=== PATIENT | male | born 1960 ===

== ENCOUNTER 2024-02-03 16:57 | Outpatient (CLI) | payer MEDICAID, SELFPAY | END 2024-02-03 16:58 | disposition home or self-care (01) | LOC: AMB 02-13 04:43 | PROVIDERS: Visit Provider Family Medicine | DX: F10.129 Alcohol abuse with intoxication, unspecified (principal) | CPT/HCPCS: A0425; A0427 ==

== ENCOUNTER 2024-02-03 17:28 | Emergency (ER) | payer MEDICAID, SELFPAY ==
[2024-02-03] VITALS (68 sets, daily range): BP systolic 65–127; BP diastolic 41–85; PULSE 103–121; RESP 12–22; TEMP 36.2–37; O2SAT 86–98; BMI 26.6
--- NOTE | 2024-02-03 17:33 | CRLHL7_ITS ---
For Patients: As a result of the Cures Act, medical imaging exams and procedure reports are released immediately into your electronic medical record. You may view this report before your referring provider. If you have questions, please contact your health care provider. INDICATION: Hypoxia. COMPARISON: None available. TECHNIQUE: 1 view. FINDINGS: Lordotic position. Medical Devices: None. Lung Volumes: Adequate inspiration. No significant atelectasis. Lungs: Clear lungs. Pleura and Pleural spaces: No significant pleural effusion. No pneumothorax. Mediastinum: Normal cardiomediastinal silhouette. Bony Thorax and Soft Tissues: No significant incidental findings. IMPRESSION: No radiographic findings to explain hypoxia. Dictated by Jose Zee MD @ 02/03/2024 6:22:41 PM (Electronically Signed)
[2024-02-03] MEDS: 0.9 % SODIUM CHLORIDE 1000 ml 1,000 ML IV ×2 (17:35→17:39)
--- NOTE | 2024-02-03 17:35 | ED_ITS ---
HPI - General Adult General Date Seen: 02/03/24 Chief complaint: Alcohol/Intoxication Stated complaint: ETOH Time Seen by Provider: 02/03/24 17:32 Source: patient and EMS Mode of arrival: EMS Limitations: no limitations History of Present Illness HPI narrative: This 63-year-old male was brought in on a [facility]. He was dropped off at his apartment by taxicab, reportedly fell a couple times in the lobby. EMS found him slumped along the wall, sitting slumped over with back against the wall. He reportedly had vomited but there was no visible vomit on scene. EMS was having difficulty getting vital signs, thought that the patient was maybe a little tremulous. His initial O2 sat was 73 and initial blood pressure was 73/42. With 4 L oxygen he did go up to 95%. Blood pressure did start trending lower, 45/29, 51/28, 52/24, 51/41. This is what prompted them to bring him in as a [facility]. He was noted to be tachycardic in the 120s. EMS did get 1 IV started, blood sugar was 159. Patient is conversive and reportedly more alert here. He states he does about 20 shots a day, drinks Jagermeister and gin. He states he has been throwing up for couple months, it is dark when he throws up. Denies any bleeding rectally. He denies any other drug use. Denies any pain anywhere. Does admit that he has fallen even before today. States he does not go to the doctor anywhere. No abdominal pain. He complains of feeling cold. He denies any history of liver disease, he states he has never been diagnosed with any liver disease when I question him. He reportedly though does not go to the doctor. Patient denies current nicotine products but states he did smoke previously. Review of Systems Status of ROS: Reports: 6 or more systems reviewed and unremarkable except as noted in History and below PFSH PFSH Social History Smoking Status: Former smoker What tobacco products do you use: cigarettes Smoking quit date/years: <= 15 years ago How often do you have a drink containing alcohol: 4 or more times a week How many standard drinks containing alcohol do you have on a typical day: 10 or more How often do you have six or more drinks on one occasion: Daily or almost daily AUDIT-C Alcohol total score: 12 Non-prescribed substance use: denies use Exam Const: Vital Signs, click to edit/add: Vital Signs - 24 hr 02/03/24 17:30 02/03/24 17:32 02/03/24 17:32 Temperature 98.2 F Pulse Rate Pulse Rate [Left P ulse Oximeter] 120 H Respiratory Rate 22 Blood Pressure Blood Pressure [Le ft Upper Arm] 65/45 L Pulse Oximetry 93 90 90 Oxygen Delivery Me thod Room Air Nasal Cannula Oxygen Flow Rate 4 02/03/24 17:40 02/03/24 17:41 02/03/24 17:46 Temperature Pulse Rate 113 H 110 H 121 H Pulse Rate [Left P ulse Oximeter] Respiratory Rate 16 12 Blood Pressure 80/52 L 102/61 86/54 L Blood Pressure [Le ft Upper Arm] Pulse Oximetry 93 95 93 Oxygen Delivery Me thod Nasal Cannula Oxygen Flow Rate 02/03/24 17:49 02/03/24 17:52 02/03/24 17:56 Temperature Pulse Rate 115 H 113 H 113 H Pulse Rate [Left P ulse Oximeter] Respiratory Rate Blood Pressure 105/59 L 96/53 L 102/63 Blood Pressure [Le ft Upper Arm] Pulse Oximetry 95 91 86 L Oxygen Delivery Me thod Oxygen Flow Rate 02/03/24 18:00 02/03/24 18:01 02/03/24 18:06 Temperature Pulse Rate 109 H 108 H 110 H Pulse Rate [Left P ulse Oximeter] Respiratory Rate Blood Pressure 109/68 103/63 Blood Pressure [Le ft Upper Arm] Pulse Oximetry 98 97 98 Oxygen Delivery Me thod Nasal Cannula Nasal Cannula Oxygen Flow Rate 4 4 02/03/24 18:11 02/03/24 18:15 02/03/24 18:17 Temperature Pulse Rate 108 H 107 H 109 H Pulse Rate [Left P ulse Oximeter] Respiratory Rate Blood Pressure 97/58 L 86/54 L Blood Pressure [Le ft Upper Arm] Pulse Oximetry 97 96 97 Oxygen Delivery Me thod Nasal Cannula Nasal Cannula Nasal Cannula Oxygen Flow Rate 4 4 4 02/03/24 18:18 02/03/24 18:22 02/03/24 18:25 Temperature Pulse Rate 111 H 112 H 111 H Pulse Rate [Left P ulse Oximeter] Respiratory Rate Blood Pressure 86/57 L 81/61 L 89/56 L Blood Pressure [Le ft Upper Arm] Pulse Oximetry 95 95 96 Oxygen Delivery Me thod Nasal Cannula Nasal Cannula Nasal Cannula Oxygen Flow Rate 4 4 4 02/03/24 18:27 02/03/24 18:29 02/03/24 18:30 Temperature Pulse Rate 112 H 110 H 109 H Pulse Rate [Left P ulse Oximeter] Respiratory Rate Blood Pressure 71/47 L 73/43 L 76/41 L Blood Pressure [Le ft Upper Arm] Pulse Oximetry 92 95 95 Oxygen Delivery Me thod Nasal Cannula Nasal Cannula Nasal Cannula Oxygen Flow Rate 4 4 4 02/03/24 18:31 02/03/24 18:32 02/03/24 18:37 Temperature Pulse Rate 106 H 108 H 110 H Pulse Rate [Left P ulse Oximeter] Respiratory Rate Blood Pressure 84/44 L 84/47 L Blood Pressure [Le ft Upper Arm] Pulse Oximetry 94 94 95 Oxygen Delivery Me thod Nasal Cannula Nasal Cannula Nasal Cannula Oxygen Flow Rate 4 4 4 02/03/24 18:38 02/03/24 18:41 02/03/24 18:45 Temperature 98.6 F Pulse Rate 106 H 109 H 108 H Pulse Rate [Left P ulse Oximeter] Respiratory Rate 20 Blood Pressure 84/47 L 80/43 L Blood Pressure [Le ft Upper Arm] Pulse Oximetry 94 94 95 Oxygen Delivery Me thod Nasal Cannula Nasal Cannula Oxygen Flow Rate 4 4 02/03/24 18:47 02/03/24 18:51 02/03/24 18:57 Temperature 98.6 F Pulse Rate 112 H 112 H 105 H Pulse Rate [Left P ulse Oximeter] Respiratory Rate 16 Blood Pressure 84/44 L 84/54 L 98/55 L Blood Pressure [Le ft Upper Arm] Pulse Oximetry 95 95 96 Oxygen Delivery Me thod Nasal Cannula Nasal Cannula Oxygen Flow Rate 4 4 02/03/24 18:57 02/03/24 18:58 02/03/24 19:00 Temperature Pulse Rate 107 H 106 H 107 H Pulse Rate [Left P ulse Oximeter] Respiratory Rate Blood Pressure 100/55 L 98/55 L Blood Pressure [Le ft Upper Arm] Pulse Oximetry 95 95 97 Oxygen Delivery Me thod Nasal Cannula Nasal Cannula Nasal Cannula Oxygen Flow Rate 4 4 4 02/03/24 19:01 02/03/24 19:07 02/03/24 19:11 Temperature 98.3 F Pulse Rate 108 H 107 H Pulse Rate [Left P ulse Oximeter] Respiratory Rate Blood Pressure 95/55 L 106/55 L Blood Pressure [Le ft Upper Arm] Pulse Oximetry 96 97 Oxygen Delivery Me thod Nasal Cannula Nasal Cannula Oxygen Flow Rate 4 4 02/03/24 19:12 02/03/24 19:15 02/03/24 19:30 Temperature Pulse Rate 110 H 109 H 110 H Pulse Rate [Left P ulse Oximeter] Respiratory Rate Blood Pressure 100/48 L Blood Pressure [Le ft Upper Arm] Pulse Oximetry 95 95 95 Oxygen Delivery Me thod Nasal Cannula Nasal Cannula Nasal Cannula Oxygen Flow Rate 4 4 4 02/03/24 19:32 02/03/24 19:37 02/03/24 19:41 Temperature Pulse Rate 110 H 111 H 110 H Pulse Rate [Left P ulse Oximeter] Respiratory Rate Blood Pressure 98/61 89/65 L 103/58 L Blood Pressure [Le ft Upper Arm] Pulse Oximetry 96 98 95 Oxygen Delivery Me thod Nasal Cannula Nasal Cannula Nasal Cannula Oxygen Flow Rate 4 4 4 02/03/24 19:42 02/03/24 19:45 02/03/24 19:46 Temperature 98.3 F Pulse Rate 110 H 111 H 109 H Pulse Rate [Left P ulse Oximeter] Respiratory Rate 16 Blood Pressure 103/62 106/63 Blood Pressure [Le ft Upper Arm] Pulse Oximetry 95 96 96 Oxygen Delivery Me thod Nasal Cannula Nasal Cannula Oxygen Flow Rate 4 4 02/03/24 19:51 02/03/24 19:56 02/03/24 19:57 Temperature 98.1 F Pulse Rate 112 H 108 H 108 H Pulse Rate [Left P ulse Oximeter] Respiratory Rate 16 Blood Pressure 103/62 108/66 108/66 Blood Pressure [Le ft Upper Arm] Pulse Oximetry 95 94 95 Oxygen Delivery Me thod Nasal Cannula Nasal Cannula Oxygen Flow Rate 4 4 02/03/24 19:59 02/03/24 20:00 02/03/24 20:00 Temperature 98.1 F 97.2 F L Pulse Rate 109 H 109 H 110 H Pulse Rate [Left P ulse Oximeter] Respiratory Rate 16 16 Blood Pressure 108/66 108/72 Blood Pressure [Le ft Upper Arm] Pulse Oximetry 96 95 94 Oxygen Delivery Me thod Nasal Cannula Oxygen Flow Rate 4 02/03/24 20:01 02/03/24 20:07 02/03/24 20:11 Temperature Pulse Rate 109 H 110 H 106 H Pulse Rate [Left P ulse Oximeter] Respiratory Rate Blood Pressure 108/72 101/66 107/64 Blood Pressure [Le ft Upper Arm] Pulse Oximetry 96 96 95 Oxygen Delivery Me thod Nasal Cannula Nasal Cannula Nasal Cannula Oxygen Flow Rate 4 4 4 02/03/24 20:15 02/03/24 20:16 02/03/24 20:21 Temperature Pulse Rate 108 H 109 H 108 H Pulse Rate [Left P ulse Oximeter] Respiratory Rate Blood Pressure 107/67 113/67 Blood Pressure [Le ft Upper Arm] Pulse Oximetry 95 95 95 Oxygen Delivery Me thod Nasal Cannula Nasal Cannula Nasal Cannula Oxygen Flow Rate 4 4 4 02/03/24 20:27 02/03/24 20:30 02/03/24 20:31 Temperature Pulse Rate 109 H 103 H 106 H Pulse Rate [Left P ulse Oximeter] Respiratory Rate Blood Pressure 107/67 110/85 Blood Pressure [Le ft Upper Arm] Pulse Oximetry 94 94 94 Oxygen Delivery Me thod Nasal Cannula Nasal Cannula Nasal Cannula Oxygen Flow Rate 4 4 4 02/03/24 20:36 02/03/24 20:41 02/03/24 20:45 Temperature Pulse Rate 113 H 111 H 108 H Pulse Rate [Left P ulse Oximeter] Respiratory Rate Blood Pressure 107/64 114/73 Blood Pressure [Le ft Upper Arm] Pulse Oximetry 96 94 93 Oxygen Delivery Me thod Nasal Cannula Nasal Cannula Nasal Cannula Oxygen Flow Rate 4 4 4 02/03/24 20:46 02/03/24 20:47 02/03/24 21:00 Temperature Pulse Rate 107 H 108 H 107 H Pulse Rate [Left P ulse Oximeter] Respiratory Rate Blood Pressure 118/71 Blood Pressure [Le ft Upper Arm] Pulse Oximetry 92 90 94 Oxygen Delivery Me thod Nasal Cannula Nasal Cannula Nasal Cannula Oxygen Flow Rate 4 4 4 02/03/24 21:01 02/03/24 21:15 02/03/24 21:17 Temperature Pulse Rate 105 H 116 H 116 H Pulse Rate [Left P ulse Oximeter] Respiratory Rate Blood Pressure 127/79 120/84 Blood Pressure [Le ft Upper Arm] Pulse Oximetry 93 92 95 Oxygen Delivery Me thod Nasal Cannula Nasal Cannula Nasal Cannula Oxygen Flow Rate 4 4 4 02/03/24 21:30 02/03/24 21:31 Temperature Pulse Rate 114 H 117 H Pulse Rate [Left P ulse Oximeter] Respiratory Rate Blood Pressure 127/82 Blood Pressure [Le ft Upper Arm] Pulse Oximetry 96 93 Oxygen Delivery Me thod Nasal Cannula Nasal Cannula Oxygen Flow Rate 4 4 63-year-old male looks to be intoxicated but is alert and conversive with me. Pupils are equal and round, sclera clear, conjugate gaze. He has dark matter around his stubble around his mouth on his chin. Looks to be probable dried coffee-ground emesis. No active bleeding is oropharynx, or pharynx dry. Neck is supple, no adenopathy. He is lying flat. Lungs are clear, good air entry. No wheezing or crackles at the axilla or anteriorly. CV is fast irregular, no murmur, normal S1-S2, no S3-S4. Abdomen is soft, nontender, nondistended, no organomegaly noted. He has no lower extremity edema. He has ecchymosis, mild erythema and abrasions anteriorly over both of his knee areas. There is some mild warmth, some mild induration of the tissues around the bruising and abraded areas. This certainly could represent some mild early cellulitis. He is able to mobilize is knees, been does legs. He has dried appearing blood by his toes. Presumably this was vomit any vomited on his feet when he was barefoot. He did come in wearing shoes that did not have vomit on them. He moves his arms, squeezes hands. He does not have any noted focal deficit. I see no acute traumatic change of the arms. Scalp is intact, no noted facial trauma. Documenting provider has reviewed patient's vital signs: yes Course Course ED Course: We have an admitted alcoholic patient that is hypotensive with probable coffee ground emesis, presume GI bleeding. He does not have any abdominal tenderness, is not febrile, doubt infectious etiology but will keep an consideration. Patient could have esophageal varices, tearing from vomiting, gastritis, ulcer with active bleeding. We will establish 2 IVs, initiate 2 L of normal saline, get full complement of labs and type and screen. I will initiate 80 mg IV Protonix, 4 mg IV Zofran, 1000 mg IV tranexemic acid. He will be on cardiac monitoring, pulse oximetry in, obtain an EKG. This patient is likely to need transfer. If pressures stay low or dropping despite the IV fluids, consider blood. Will also obtain portable chest x-ray given the hypoxia, could be aspiration, underlying pneumonia given his chronic alcohol state. Even if patient does stabilize, we will not have endoscopy until Monday of this upcoming week. Reevaluation(s) Time of Reevaluation #1: 17:47 Reevaluation #1: Nursing staff reported patient did have a coffee-ground emesis. They just have gotten medications in him with Protonix, Zofran. Will watch him closely, may need to initiate blood. He is starting on the 2 L IV fluid, both IVs are in place. I have asked staff to look for an ICU bed at a higher level institution. Lab is aware that we need his hemoglobin stat. Gastrocult is positive. Time of Reevaluation #2: 18:07 Reevaluation #2: Patient has completed his 2 L of IV fluids. He is still alert and conversive, states he just does not feel good. When ask him to expound, he states that there is no body aches on questioning. He does not have a headache, has no abdominal pain, states he has no pain anywhere. He states he just feels weak. He is mildly tachycardic at 110, current systolic blood pressure is 109. Given his lactate is greater than 24, will initiate 3rd L of normal saline over 2 h ours. His hemoglobin is come back in the 12 range, likely to drop further. His potassium is come back at 2.3. This patient is not in a position to tolerate oral replacement. Have ordered our protocol for four 10 mEq doses of IV potassium. Await the rest of the labs, suspect his magnesium may come back low as well. Time of Reevaluation #3: 18:26 Reevaluation #3: Patient did have an other small coffee-ground emesis. Blood pressures are trending down in the systolics of 80s. Will give the 3 L of normal saline rapidly, had ordered over 2 hours but will give it rapidly. Will have lab type and crossmatch at this point. Still awaiting a call back for placement. Additional Reevaluation(s): 6:31 p.m.: Nursing staff did come back to tell me that despite increasing the 3 L wide open, patient was feeling miserable, stated he felt like he was going to , blood pressure was continuing to drop lower into the 80s. I did call lab, we know that the patient is AB-positive. They will give him on crossmatch a positive and type 2 units more. I called [facility] right after that, still had not heard back from [place]. Realized magnesium had not been ordered, did add a magnesium level on, his ionized calcium is low, did order calcium gluconate IV. Spoke with Dr. Celestin the exceptional student education teacher taking system calls. Did review the case with him, was on the phone a total of 21 minutes in this encounter between nursing staff and talking to the exceptional student education teacher. He is going to talk to the other staff, call me back. At 7:03 p.m., he did call me back. They would like me to get a CT scan just to ensure no ischemic bowel. Will have to do this without contrast. I will contact the transfer center when this is back. If he is going over to CT scan, do think it is appropriate to do a head CT given that he is chronic alcoholic and has been falling. I see no acute evidence of neurologic decompensation but he certainly could have small brain bleeds or traumatic change that he is not symptomatic from overtly. 7:40 p.m.: Called Altagracia RN in the transfer center to alert her to the fact the patient has a small subdural hematoma. He is hemodynamically stable, no focal neurologic deficits can be identified at this time. He continues to be alert and interactive. Will fax the report down. We are still awaiting the radiologist to read his abdominal imaging. 8:05 p.m.: Patient states he still feeling terrible but is alert and conversive with me. Blood pressure and pulse are stable. Reviewed with him that there is some distal thickening of his esophagus on his CT. I do think he is going to need an EGD at some point. Awaiting transfer at this time. Did review that he had a small subdural hematoma. 8:50 p.m.: Altagracia the RN in the transfer center has given us acceptance for this patient in the MICU, Dr. Lilly accepting. She has given me the phone number to give to the nurse to call report, states we can send the patient peers Vital Signs Vital signs: Initial Vital Signs Temperature 98.2 F 02/03/24 17:30 Temperature Source Temporal Artery Scan 02/03/24 17:30 Pulse Rate 120 H 02/03/24 17:30 Pulse Rhythm Regular 02/03/24 17:30 Pulse Strength 3+ Normal 02/03/24 17:30 Respiratory Rate 22 02/03/24 17:30 Blood Pressure 65/45 L 02/03/24 17:30 Blood Pressure Mean 51 L 02/03/24 17:30 Blood Pressure Position Supine 02/03/24 17:30 Pulse Oximetry 93 02/03/24 17:30 Oxygen Delivery Method Room Air 02/03/24 17:30 Vital Signs Temperature 98.2 F 02/03/24 17:30 Pulse Rate 120 H 02/03/24 17:30 Respiratory Rate 22 02/03/24 17:30 Blood Pressure 65/45 L 02/03/24 17:30 Pulse Oximetry 93 02/03/24 17:30 Oxygen Delivery Method Room Air 02/03/24 17:30 Temperature 97.2 F L 02/03/24 20:00 Pulse Rate 117 H 02/03/24 21:31 Respiratory Rate 16 02/03/24 20:00 Blood Pressure 127/82 02/03/24 21:31 Pulse Oximetry 93 02/03/24 21:31 Oxygen Delivery Method Nasal Cannula 02/03/24 21:31 Oxygen Flow Rate 4 02/03/24 21:31 Medications Administered Medications: Discontinued Medications Generic Name Dose Route Start Last Admin Trade Name Freq PRN Reason Stop Dose Admin Sodium Chloride 1,000 mls @ 1,000 mls/hr 02/03/24 17:33 02/03/24 17:55 0.9 % Sodium Chloride 1000 Ml IV 02/03/24 18:32 Infused .Q1H JUNIE Infusion Sodium Chloride 1,000 mls @ 1,000 mls/hr 02/03/24 17:35 02/03/24 18:00 0.9 % Sodium Chloride 1000 Ml IV 02/03/24 18:34 Infused .Q1H JUNIE Infusion Sodium Chloride 1,000 mls @ 500 mls/hr 02/03/24 18:07 02/03/24 19:10 0.9 % Sodium Chloride 1000 Ml IV 02/03/24 20:06 Infused .Q2H JUNIE Infusion Potassium Chloride 10 meq in 100 mls @ 100 mls/hr 02/03/24 18:15 02/03/24 21:31 Potassium Chloride IVPB 02/03/24 23:44 100 mls/hr Q90M JUNIE Administration Calcium Gluconate/Sodium Chloride 1,000 mg in 50 mls @ 100 mls/hr 02/03/24 18:39 02/03/24 20:44 Calcium Gluc 1,000mg/50 Ml IVPB 02/03/24 19:08 Infused ONCE ONE Infusion Ceftriaxone Sodium 2 gm/ 100 mls @ 200 mls/hr 02/03/24 18:52 02/03/24 19:42 Sodium Chloride IVPB 02/03/24 18:53 Infused ONCE ONE Infusion Ondansetron HCl 4 mg 02/03/24 17:32 02/03/24 17:39 Ondansetron 2 Mg/Ml Inj IVP 02/03/24 17:33 4 mg ONCE ONE Administration Pantoprazole Sodium 80 mg 02/03/24 17:32 02/03/24 17:40 Pantoprazole Sodium 40 Mg Inj IVP 02/03/24 17:33 80 mg ONCE ONE Administration Sodium Chloride 250 ml 02/03/24 18:27 02/03/24 21:51 0.9 % Sodium Chloride 250 Ml IV 02/04/24 23:59 250 ml ONCE PRN Administration Tranexamic Acid 1,000 mg 02/03/24 17:34 02/03/24 17:41 Tranexamic Acid 100 Mg/Ml Inj IV 02/03/24 17:35 1,000 mg ONCE ONE Administration Medical Decision Making Lab Data Lab results reviewed: Yes I reviewed the patient's lab results Labs: Lab Results 02/03/24 02/03/24 02/03/24 Range/Units 17:35 17:36 18:48 WBC 9.68 (4.50-11.00) K/uL RBC 4.04 L (4.30-5.90) m/uL Hgb 12.5 L (13.5-17.5) gm/dL Hct 35.6 L (37.0-53.0) % MCV 88 (80-100) fL MCH 31 (26-34) pg MCHC 35 (32-36) gm/dL RDW Coeff of Get 15.5 (11.5-15.5) % Plt Count 142 (140-440) K/uL Neut % (Auto) 83.2 H (42.0-72.0) % Lymph % (Auto) 7.5 L (20-44) % [place] % (Auto) 8.2 (0.0-11.0) % Eos % (Auto) 0.4 (0.0-7.0) % Baso % (Auto) 0.1 (0.0-3.0) % Neut # (Auto) 8.10 H (1.7-7.0) K/uL Lymph # (Auto) 0.70 L (0.90-2.90) K/uL [place] # (Auto) 0.80 (0.00-0.90) K/UL Eos # (Auto) 0.04 (0.00-0.50) K/uL Baso # (Auto) 0.01 (0.00-0.30) K/uL Abs Immat Gran (auto) 0.06 (0.00-0.30) K/uL Imm/Tot Granulo (auto) 0.6 % INR 1.29 H (0.91-1.10) APTT 37 H (23-33) Seconds VBG pH 7.354 (7.32-7.43) VBG pCO2 40 (40-50) mmHG VBG pO2 35.0 (25-47) mmHG VBG HCO3 22 (21-28) mmol/L Sodium 133 L (135-149) mmol/L Potassium 2.3 L* (3.6-5.1) mmol/L Chloride 69 L (96-114) mmol/L Carbon Dioxide 21 (20-32) mmol/L Anion Gap 43 H (7-15) mEq/L BUN 32 H (7-30) mg/dL Creatinine 3.3 H (0.5-1.5) mg/dL Estimated Creat Clear 23.51 Estimated GFR 20 ml/min Glucose 139 H (60-115) mg/dL Lactate > 24.0 H* (0.5-1.9) mmol/L Calcium 7.4 L (8.4-10.6) mg/dL Ionized Calcium Denise 0.80 L (1.11-1.30) mmol/L Magnesium 2.8 H (1.5-2.6) mg/dL Total Bilirubin 2.8 H (0.1-1.5) mg/dL Direct Bilirubin 1.1 H (0.0-0.5) mg/dL AST 203 H (12-35) U/L ALT 81 H (4-50) U/L Alkaline Phosphatase 66 (40-150) U/L Ammonia 20.0 (13.1-30.0) umol/L Troponin I 0.03 (0.01-0.04) ng/mL NT-Pro-B Natriuret Pep 149 pg/mL Total Protein 6.1 (6.0-8.3) g/dL Albumin 3.8 (3.3-5.0) g/dL Lipase 1146 H (23-300) U/L Ethyl Alcohol 0.35 H* (0.01-0.03) % Lab Acknowledgement Test Added Blood Type AB Positive Antibody Screen NEGATIVE Crossmatch (AHG) See Detail Imaging Data Chest x-ray: Attestation: I have reviewed the pertinent imaging results. My impression: I do not see any acute pathology on my preliminary review of these images. Radiologist's impression: Patient: JAMEE MCGREGOR Facility:?[facility] Patient ID:?[id number] Site Patient ID:?[id number]. Site :?1960 Study:?XRay-Chest PORTABLE-02/03/2024 5:58:20 PM Ordering Physician:Monse Iyer Final Report: INDICATION: Hypoxia. COMPARISON: None available. TECHNIQUE: 1 view. FINDINGS: Lordotic position. Medical Devices: None. Lung Volumes: Adequate inspiration. No significant atelectasis. Lungs: Clear lungs. Pleura and Pleural spaces: No significant pleural effusion. No pneumothorax. Mediastinum: Normal cardiomediastinal silhouette. Bony Thorax and Soft Tissues: No significant incidental findings. IMPRESSION: No radiographic findings to explain hypoxia. Dictated by Jose Zee MD @ 02/03/2024 6:22:41 PM (Electronic Signature) CT scan - head: Attestation: I have reviewed the pertinent imaging results. Radiologist's impression: Patient: JAMEE MCGREGOR Facility:?[facility] Patient ID:?[id number] Site Patient ID:?[id number]. Site :?[id number] Study:?CT-Head w/o-02/03/2024 7:28:32 PM Ordering Physician:?Theodore Iyer Final Report: INDICATION: Alcohol. Falls. Hypotension. GI bleed. TECHNIQUE: CT of the head without contrast. Coronal and sagittal reformats are included. COMPARISON: None. FINDINGS: There is a thin acute subdural hematoma along the falx and left tentorial leaflet. It measures around 3 millimeters in diameter. No mass effect or midline shift. No hydrocephalus or extra-axial collections. White matter is within normal limits for age. No acute osseous abnormalities. A right maxillary sinus retention cysts. The paranasal sinuses and mastoid air cells are otherwise clear. Normal soft tissues. IMPRESSION: IMPRESSION: 1. Thin acute subdural hematoma along the falx and left tentorial leaflet. No significant mass effect. 2. No fractures. Please note that all CT scans at this facility use dose modulation, iterative reconstruction, and/or weight-based dosing when appropriate to reduce radiation dose to as low as reasonably achievable. Dictated by Carlos Nielson MD @ 02/03/2024 7:41:39 PM (Electronic Signature) CT scan - abdomen: Attestation: I have reviewed the pertinent imaging results. Radiologist's impression: Patient: JAMEE MCGREGOR Facility:?[facility] Patient ID:?[id number] Site Patient ID:?[id number]. Site :?1960 Study:?CT-Abdomen/Pelvis W/O-02/03/2024 7:28:40 PM Ordering Physician:?Theodore Iyer Final Report: INDICATION: Alcohol, falls, hypotension, GI bleed, lactate greater than 24. TECHNIQUE: CT of the abdomen and pelvis without IV contrast. Coronal and sagittal reconstructions. COMPARISON: None. FINDINGS: Moderate to severe diffuse hepatic steatosis. The gallbladder is filled with hyperdense material which may represent stones or sludge. No signs of gallbladder inflammation. No biliary dilation. The unenhanced spleen, pancreas, and right adrenal gland are normal in appearance. There is a 0.8 cm left adrenal nodule which measures above 10 HU. No hydronephrosis or ureteral dilation. No obstructing urinary calculi identified. Small nonobstructing left renal calyceal stone. There is a 4.4 cm cyst in the lower pole of the right kidney. Small diverticulum along the anterior bladder wall. No bladder wall thickening. Mildly enlarged prostate gland. There is moderate wall thickening of the visualized distal esophagus. Small hiatal hernia. The remainder of the stomach appears normal. No small bowel dilation. Mild amount of stool throughout the colon. Colonic diverticulosis without evidence of diverticulitis. No obvious intraluminal blood products, however evaluation is limited without IV contrast. Negative appendix. No intraperitoneal free air or fluid. No lymphadenopathy. Aortoiliac vascular calcifications. Small fat containing umbilical hernia. Bibasilar atelectasis. Degenerative changes of the spine. Subacute appearing fracture of the right lateral 9th rib. Few tiny sclerotic lesions in the pelvis. IMPRESSION: 1. Partially visualized moderate wall thickening of the distal esophagus. This may be inflammatory, however further evaluation with endoscopy is recommended. 2. No obvious signs of GI bleeding or bowel ischemia, however evaluation is limited without IV contrast. 3. Moderate to severe diffuse hepatic steatosis. 4. Small indeterminate left adrenal nodule. 5. Subacute appearing fracture of the right lateral 9th rib. Please note that all CT scans at this facility use dose modulation, iterative reconstruction, and/or weight-based dosing when appropriate to reduce radiation dose to as low as reasonably achievable. Dictated by Alice Lemus MD @ 02/03/2024 8:01:14 PM (Electronic Signature) ECG Data Attestation: I personally reviewed and interpreted this ECG as follows: (Sinus tachycardia, 115 beats per minute. Nonspecific ST T wave changes, no pattern for active ischemia. QT corrected 500 milliseconds.) Prior ECG tracings: not available for review Critical Care Time Critical Care Time Critical Care Time: Yes Attestation: The patient required my highest level preparedness to intervene emergently and I personally spent this critical care time directly and personally managing the patient. This critical care time included: Obtaining a history; Examining the patient; Pulse oximetry; Ordering and reviewing of studies; Arranging urgent treatment with development of a management plan; Evaluation of patients response to treatment; Frequent reassessment discussions with other providers. This critical care time was performed to assess and manage the high probability of imminent life-threatening deterioration that could result in multiorgan failure. It was exclusive of separate billable procedures and treating other patients and teaching time. Total Critical Care Time in Minutes: 165 Discharge Plan Discharge Clinical Impression: Acute hypotension, Hematemesis of unknown etiology, Hypokalemia, Hypocalcemia, Acute subdural hematoma Alcoholic intoxication Qualifiers: Complication of substance-induced condition: with unspecified complication Qualified Code(s): F10.929 - Alcohol use, unspecified with intoxication, unspecified Renal failure Qualifiers: Renal failure chronicity: unspecified chronicity Qualified Code(s): N19 - Unspecified kidney failure Patient Disposition: Xfer [place] Discharge Location: [facility] Stand Alone Forms: [facility], [place] Info Instructions
[2024-02-03 17:39] LABS: HCO3 VBG 22 mmol/L (21-28); PCO2 VBG 40 mmHG (40-50); pH VBG 7.354 (7.32-7.43)
[2024-02-03] MEDS: ONDANSETRON 2 MG/ML inj 4 MG IVP (17:39)
[2024-02-03] MEDS: PANTOPRAZOLE SODIUM 40 MG INJ 80 MG IVP (17:40)
[2024-02-03] MEDS: TRANEXAMIC ACID 100 MG/ML INJ 1000 MG IV (17:41)
[2024-02-03 17:42] LABS: Basophils Absolute Auto 0.01 K/uL (0.00-0.30); Basophils Percent Auto 0.1 % (0.0-3.0); Eosinophils Absolute Auto 0.04 K/uL (0.00-0.50); Eosinophils Percent Auto 0.4 % (0.0-7.0); Hematocrit 35.6 % (37.0-53.0); Hemoglobin* 12.5 gm/dL (13.5-17.5); Immature Granulocytes Abs Auto 0.06 K/uL (0.00-0.30); Immature Granulocytes Pct Auto 0.6 %; Lymphocytes Percent Auto 7.5 % (20-44); Mean Corpuscular HGB Conc 35 gm/dL (32-36); Mean Corpuscular Hemoglobin 31 pg (26-34); Mean Corpuscular Volume 88 fL (80-100); Monocytes Percent Auto 8.2 % (0.0-11.0); Neutrophils Percent Auto 83.2 % (42.0-72.0); Platelet Count* 142 K/uL (140-440); RDW Coefficient of Variation % 15.5 % (11.5-15.5); Red Blood Count 4.04 m/uL (4.30-5.90); White Blood Count* 9.68 K/uL (4.50-11.00)
[2024-02-03 17:43] LABS: Slide Review Reflex No
[2024-02-03 17:44] LABS: Lactate* > 24.0 mmol/L (0.5-1.9)
[2024-02-03 17:56] LABS: Albumin* 3.8 g/dL (3.3-5.0)
[2024-02-03 17:57] LABS: Chloride* 69 mmol/L (96-114); Sodium* 133 mmol/L (135-149)
[2024-02-03 17:59] LABS: Alkaline Phosphatase* 66 U/L (40-150); Anion Gap 43 mEq/L (7-15); Bilirubin Total* 2.8 mg/dL (0.1-1.5); Blood Urea Nitrogen* 32 mg/dL (7-30); Carbon Dioxide* 21 mmol/L (20-32); Creatinine* 3.3 mg/dL (0.5-1.5); Est. Creatinine Clearance* 23.51; Estimated Glomerular Filt Rate 20 ml/min; INR 1.29 (0.91-1.10); Total Protein* 6.1 g/dL (6.0-8.3)
[2024-02-03 18:00] LABS: Calcium* 7.4 mg/dL (8.4-10.6); Glucose* 139 mg/dL (60-115); Lipase* 1146 U/L (23-300); Partial Thromboplastin Time* 37 Seconds (23-33)
[2024-02-03 18:05] LABS: Bilirubin Direct* 1.1 mg/dL (0.0-0.5)
[2024-02-03 18:06] LABS: Aspartate Amino Transferase* 203 U/L (12-35)
[2024-02-03 18:08] LABS: Potassium* 2.3 mmol/L (3.6-5.1)
[2024-02-03 18:09] LABS: Ethanol* 0.35 % (0.01-0.03); NT Pro B Type NatriureticPept* 149 pg/mL
[2024-02-03 18:12] LABS: Troponin I* 0.03 ng/mL (0.01-0.04)
[2024-02-03] MEDS: POTASSIUM CHLORIDE 10 MEQ/100 ML PIGGYBACK 100 MEQ IVPB ×3 (18:13→21:31)
[2024-02-03] MEDS: 0.9 % SODIUM CHLORIDE 1000 ml 1,000 ML 500 ML IV (18:13)
[2024-02-03 18:26] LABS: Alanine Aminotransferase* 81 U/L (4-50)
[2024-02-03 18:53] LABS: Magnesium* 2.8 mg/dL (1.5-2.6)
[2024-02-03] MEDS: cefTRIAXone 2 GM in 0.9 % SODIUM CHLORIDE Mini-bag 100 ML IVPB (19:05)
--- NOTE | 2024-02-03 19:08 | CRLHL7_ITS ---
For Patients: As a result of the Cures Act, medical imaging exams and procedure reports are released immediately into your electronic medical record. You may view this report before your referring provider. If you have questions, please contact your health care provider. INDICATION: Alcohol. Falls. Hypotension. GI bleed. TECHNIQUE: CT of the head without contrast. Coronal and sagittal reformats are included. COMPARISON: None. FINDINGS: There is a thin acute subdural hematoma along the falx and left tentorial leaflet. It measures around 3 millimeters in diameter. No mass effect or midline shift. No hydrocephalus or extra-axial collections. White matter is within normal limits for age. No acute osseous abnormalities. A right maxillary sinus retention cysts. The paranasal sinuses and mastoid air cells are otherwise clear. Normal soft tissues. IMPRESSION: IMPRESSION: 1. Thin acute subdural hematoma along the falx and left tentorial leaflet. No significant mass effect. 2. No fractures. Please note that all CT scans at this facility use dose modulation, iterative reconstruction, and/or weight-based dosing when appropriate to reduce radiation dose to as low as reasonably achievable. Dictated by Carlos Nielson MD @ 02/03/2024 7:41:39 PM (Electronically Signed)
--- NOTE | 2024-02-03 19:08 | CRLHL7_ITS ---
For Patients: As a result of the Century Cures Act, medical imaging exams and procedure reports are released immediately into your electronic medical record. You may view this report before your referring provider. If you have questions, please contact your health care provider. INDICATION: Alcohol, falls, hypotension, GI bleed, lactate greater than 24. TECHNIQUE: CT of the abdomen and pelvis without IV contrast. Coronal and sagittal reconstructions. COMPARISON: None. FINDINGS: Moderate to severe diffuse hepatic steatosis. The gallbladder is filled with hyperdense material which may represent stones or sludge. No signs of gallbladder inflammation. No biliary dilation. The unenhanced spleen, pancreas, and right adrenal gland are normal in appearance. There is a 0.8 cm left adrenal nodule which measures above 10 HU. No hydronephrosis or ureteral dilation. No obstructing urinary calculi identified. Small nonobstructing left renal calyceal stone. There is a 4.4 cm cyst in the lower pole of the right kidney. Small diverticulum along the anterior bladder wall. No bladder wall thickening. Mildly enlarged prostate gland. There is moderate wall thickening of the visualized distal esophagus. Small hiatal hernia. The remainder of the stomach appears normal. No small bowel dilation. Mild amount of stool throughout the colon. Colonic diverticulosis without evidence of diverticulitis. No obvious intraluminal blood products, however evaluation is limited without IV contrast. Negative appendix. No intraperitoneal free air or fluid. No lymphadenopathy. Aortoiliac vascular calcifications. Small fat containing umbilical hernia. Bibasilar atelectasis. Degenerative changes of the spine. Subacute appearing fracture of the right lateral 9th rib. Few tiny sclerotic lesions in the pelvis. IMPRESSION: 1. Partially visualized moderate wall thickening of the distal esophagus. This may be inflammatory, however further evaluation with endoscopy is recommended. 2. No obvious signs of GI bleeding or bowel ischemia, however evaluation is limited without IV contrast. 3. Moderate to severe diffuse hepatic steatosis. 4. Small indeterminate left adrenal nodule. 5. Subacute appearing fracture of the right lateral 9th rib. Please note that all CT scans at this facility use dose modulation, iterative reconstruction, and/or weight-based dosing when appropriate to reduce radiation dose to as low as reasonably achievable. Dictated by Alice Lemus MD @ 02/03/2024 8:01:14 PM (Electronically Signed)
[2024-02-03] MEDS: CALCIUM GLUC 1,000MG/50 ML 1,000 MG/50 ML BAG 100 MG IVPB (20:15)
[2024-02-03] MEDS: 0.9 % SODIUM CHLORIDE 250 ml IV (21:51)
[2024-02-14 15:20] LABS: Gastric Occult Blood* POS
== END 2024-02-03 22:00 | disposition short-term general hospital (02) ==
PROVIDERS: Emergency Provider Family Medicine
DX: F10.129 Alcohol abuse with intoxication, unspecified (principal); N19 Unspecified kidney failure; K92.0 Hematemesis
CPT/HCPCS: 36415; 36430; 70450; 71045; 74176; 80053; 80306; 82077; 82140; 82248; 82330; 82803; 83605; 83690; 83735; 83880; 83986; 84484; 85025; 85610; 85730; 86850; 86900; 86901; 86922; 93005; 94761; 96365; 96366; 96375; 99285; 99291; 99292; C9113; J0613; J0696; J2405; J3480; J7030; J7050; P9016

== ENCOUNTER 2024-02-03 21:49 | Outpatient (CLI) | payer MEDICAID, OTHER, SELFPAY | END 2024-02-03 21:50 | disposition home or self-care (01) | LOC: AMB 02-15 04:15 | PROVIDERS: Visit Provider Family Medicine | DX: F10.229 Alcohol dependence with intoxication, unspecified (principal) | CPT/HCPCS: A0425; A0434 ==

== ENCOUNTER 2024-06-10 09:45 | Outpatient (CLI) | payer OTHER, SELFPAY | END 2024-06-10 09:46 | disposition home or self-care (01) | PROVIDERS: Visit Provider Emergency Medicine Emergency Medical Services | DX: F41.9 Anxiety disorder, unspecified (principal); R53.83 Other fatigue | CPT/HCPCS: A0998 ==

== ENCOUNTER 2024-06-28 02:49 | Outpatient (CLI) | payer MEDICAID, SELFPAY | END 2024-06-28 02:50 | disposition home or self-care (01) | LOC: AMB 07-12 13:10 | PROVIDERS: Visit Provider Family Medicine | DX: M54.9 Dorsalgia, unspecified (principal) | CPT/HCPCS: A0425; A0427 ==

== ENCOUNTER 2024-09-26 09:53 | Outpatient (CLI) | payer MEDICAID, SELFPAY | END 2024-09-26 09:54 | disposition home or self-care (01) | LOC: AMB 10-10 03:12 | PROVIDERS: Visit Provider Student in an Organized Health Care Education/Training Program | DX: K92.0 Hematemesis (principal); R11.2 Nausea with vomiting, unspecified; K92.1 Melena; R53.1 Weakness | CPT/HCPCS: A0425; A0427 ==

== ENCOUNTER 2024-09-26 10:22 | Emergency (ER) | payer MEDICAID, SELFPAY ==
[2024-09-26] VITALS (21 sets, daily range): BP systolic 62–145; BP diastolic 36–97; PULSE 80–134; RESP 9–35; O2SAT 83–100
--- NOTE | 2024-09-26 | CRLHL7_ITS ---
For Patients: As a result of the Century Cures Act, medical imaging exams and procedure reports are released immediately into your electronic medical record. You may view this report before your referring provider. If you have questions, please contact your health care provider. Indication: Shortness of breath Technique: Chest 1 view Comparison: None Findings/Impression: Cardiovascular and mediastinum: Normal heart size with mild aortic tortuosity. Lungs and pleural space: Low lung volumes without pleural effusion or pneumothorax. Minimal discoid atelectasis left lung base. Bones and soft tissues: No acute findings. Dictated by Roger Bell MD @ 09/26/2024 11:05:14 AM (Electronically Signed)
--- OUTSIDE RECORDS SUMMARY | 2024-09-26 10:24 | XMS_ITS | Clinical Summary ---
Author Organization [employer] [facility] Address [place], [place] [address] Care Team Providers Care District Sales Coordinator Name Role Phone Pcp, No Primary Care Provider Unavailabl e Allergies Active Allergy Reactions Criticality Noted Date Comments Penicillins Rash 06/12/2012 Medications hydrocortisone 1% (HYTONE) 1 % lotionIndicatio ns:Urticaria Apply topically to affected area(s) 2 times daily. 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 Immunizations Name Administration Dates Next Due Tdap 11/02/2011 Social History Tobacco Use Types Packs/Day Years Used Date Smoking Tobacco: Every Day Cigarettes Smokeless Tobacco: Never Alcohol Use Standard Drinks/Week Comments Not Asked 0 (1 standard drink = 0.6 oz pur e alcohol) Sex and Gender Information Value Date Recorded Sex Assigned at Not on file Legal Sex Male 8:38 AM SOFTWARE APPLICATIONS DEVELOPER Gender Identity Not on file Sexual Orientation Not on file Obstetrics History Last Filed Vital Signs Vital Sign Reading Time Taken Comments Blood Pressure 129/109 07/26/2023 5:51 AM SOFTWARE APPLICATIONS DEVELOPER Pulse 122 07/26/2023 5:51 AM SOFTWARE APPLICATIONS DEVELOPER Temperature 36.8 C (98.3 F) 10/21/2018 11:06 AM SOFTWARE APPLICATIONS DEVELOPER Respiratory Rate 18 07/26/2023 5:51 AM SOFTWARE APPLICATIONS DEVELOPER Oxygen Saturation 99% 07/26/2023 5:51 AM SOFTWARE APPLICATIONS DEVELOPER Inhaled Oxygen Concentration - - Weight 77.1 kg (170 lb) 10/21/2018 11:06 AM SOFTWARE APPLICATIONS DEVELOPER Height 167.6 cm (5' 6) 10/21/2018 11:06 AM SOFTWARE APPLICATIONS DEVELOPER Body Mass Index 27.44 10/21/2018 11:06 AM SOFTWARE APPLICATIONS DEVELOPER Plan of Treatment Health Maintenance Due Date Last Done Comments Depression screening for age 12+ 1974 HIV for age 15-65 1977 Hepatitis C screening for age 18-79 1980 Colonoscopy through age 75 11/18/2007 Lipids for age 45-75 11/18/2007 Pneumococcal series for age 50+ (1 of 1 - PCV) 013 Zoster (shingles) series for age 50+ (1 of 2) 11/18/19 13 BMI (ht and wt on same day) for age 18+ 10/21/2019 0 10/21/2018 Tetanus booster 11/02/2021 11/02/2011 COVID-19 vaccine series ( - 2023- season) 4 Influenza for age 50-64 05/12/2024 RSV vaccine for adults or pr egnancy (1 - 1-dose 75+ series) 2037 Tdap Completed 11/02/2011 Care Teams District Sales Coordinator Relationship Specialty Start Date End Date Pcp, No . PCP - General 10/21/18
--- OUTSIDE RECORDS SUMMARY | 2024-09-26 10:24 | XMS_ITS ---
Author Organization [facility] Address [address] [place] [address] Care Team Providers Care Automobile Painter Name Role Phone Unavailable Unavailable Unavailable Surgery Details Not on file Complications Check Surgery Details section. Procedure Estimated Blood Loss Check Surgery Details section. Procedure Findings Check Surgery Details section. Procedure Specimens Taken Check Surgery Details section.
--- OUTSIDE RECORDS SUMMARY | 2024-09-26 10:24 | XMS_ITS | Referral Summary ---
Author Organization [facility] Address [address] [place] [address] Care Team Providers Care Soil Field Technician Name Role Phone Cassidy Espinoza APRN, C.N.P. Primary Care Provide r Source Comments Patient records contain information from all sites at [facility]. For routine questions regarding patient records, call [phone] during business hours, M-F 8:00 AM - 5:00 PM Central Time. Record requests for emergency care only can be directed to [phone] at any time.[facility] Encounters Date Type Department Care Team Description 07/16/2024 Orders Only [facility] Cass[facility] Espinoza APRN, C.N.P. Screening Lipid 06/28/2024 4:02 AM CDT - 07/02/2024 1:47 PM CDT Hospital Encounter [facility], [facility], [facility], Fourth Floor [address] [place] [phone] Yaakov Clifton M.D. Trinity Farooq PBin.Tyler., M.S. Mati Hickman M.D. Madhuri Denton M.D., M.S. Alcohol Withdrawal Syndrome (HCC) (Primary Dx); Hypokalemia; Hyponatremia; Hypomagnesemia; Hypocalcemia; Pain Back; Pain Leg Left; Decline Functional Status [R53.81] Discharge Disposition: Home or Self Care from Last 3 Months Allergies Active Allergy Reactions Criticality Noted Date Comments Penicillins Rash 02/04/2024 Rash as a child Medications multivitamin-mi nerals tablet Take 1 tablet by mouth daily. 30 tablet 11 4 02/08/20 25 Active thiamine (Vitamin B-1) 100 mg tablet Take 1 tablet (100 mg total) by mouth daily. 100 tablet 2 07/02/2024 3:03 PM CDT 4 03/12/20 25 Active folic acid 1 mg tablet Take 1 tablet (1 mg total) by mouth daily. 90 tablet 3 07/02/2024 3:03 PM CDT 4 03/12/20 25 Active pantoprazole (Protonix) 40 mg EC tablet Take 1 tablet (40 mg total) by mouth every morning before breakfast. Start 04/16/24 after completing twice daily dosing for two months. 90 tablet 3 4 04/16/20 25 Active acetaminophen (TylenoL) 325 mg tablet Take 2 tablets (650 mg total) by mouth 4 (four) times a day. 4 Active diclofenac sodium (Voltaren) 1 % gel Apply 2 g topically 4 (four) times a day. Apply to affected areas. 100 g 1 07/02/2024 2:29 PM CDT Active gabapentin (Neurontin) 300 mg capsule Take 1 capsule (300 mg total) by mouth 3 (three) times a day. 90 capsule 1 07/02/2024 2:29 PM CDT 4 Active multivitamin with folic acid (One Daily Multivitamin) 400 mcg tablet Take 1 tablet by mouth daily 100 tablet 07/02/2024 3:03 PM CDT 4 Active Active Problems Problem Noted Date Diagnosed Date Alcohol Withdrawal Syndrome 06/28/2024 Dysphagia 02/12/2024 Chronic Right Heart Failure 02/07/2024 Hypertension Pulmonary 02/07/2024 Acute And Chronic Respiratory Failure With Hyper capnia 02/06/2024 Abnormal Liver Function Test 02/06/2024 Thrombocytopenia 02/04/2024 Hypocalcemia 02/04/2024 Prolonged QT Interval 02/04/2024 Nausea And Vomiting 02/04/2024 Shock 02/03/2024 Hematoma 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 Initial 02/03/2024 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 02/03/2024 Abuse Tobacco Smoking 02/03/2024 Hypertension Essential Primary 11/07/2012 Overview (01/31/2017): Hypertension Essential (401.9) Immunizations Name Administration Dates Next Due HepB Adult 08/22/2001,03/08/2001,01/22/2001 Td (Adult), adsorbed 09/02/2004 Tdap 11/02/2011 Social History Tobacco Use Types Packs/Day Years Used Date Smoking Tobacco: Former Cigarettes 0.3 20 0 09/11/1982 - 11/10/2023 Smokeless Tobacco: Never Alcohol Use Standard Drinks/Week Comments Yes 20 (1 standard drink = 0.6 oz pu re alcohol) 10-20 shots a day [facility] [employer] Answer Date Recorded In the past 12 months has [facility] Effective Measure, gas, oil, or water [employer] threatened to shut off services in your home? Patient declined 06/28/2024 Humiliation, Afraid, Rape, and Kick questionnair e Answer Date Recorded Within the last year, have y ou been afraid of your partner or ex-partner? No 06/28/2024 Within the last year, have y ou been humiliated or emotionally abused in other ways by your partner or ex-partner? No Within the last year, have y ou been kicked, hit, slapped, or otherwise physically hurt by your partner or ex-partner? No 06/28/2024 Within the last year, have y ou been raped or forced to have any kind of sexual activity by your partner or ex-partner? No 06/28/2024 PHQ-2 Answer Date Recorded PHQ-2 Score 3 06/30/2024 Exercise Vital Sign Answer Date Recorde d On average, how many days pe r week do you engage in moderate to strenuous exercise (like a brisk walk)? 1 day 03/11/2024 On average, how many minutes do you engage in exercise at this level? 20 min 03/11/2024 Hunger Vital Sign Answer Date Recorded Within the past 12 months, y ou worried that your food would run out before you got the money to buy more. Patient declined 06/28/2024 Within the past 12 months, t he food you bought just didn't last and you didn't have money to get more. Patient unable to answer 06/28/2024 PRAPARE - Transportation Answer Date Re corded In the past 12 months, has l ack of transportation kept you from medical appointments or from getting medications? Patient declined 06/28/2024 In the past 12 months, has l ack of transportation kept you from meetings, work, or from getting things needed for daily living? Patient declined 06/28/2024 Depression Answer Date Recor ded PHQ-9 Total Score (max 27) 11 06/30 Nutrition Answer Date Recorded On average, how many serving s of fruits and vegetables do you eat per day (serving size is equal to 1 cup or approximately the size of a tennis ball)? 0-2 03/11/2024 Dental Answer Date Recorded Dental: Regular Dentist No 03/11/20 24 Employment Answer Date Recorded Employment status Unemployed/not in th e paid workforce but seeking employment 03/11/2024 Housing Stability Answer Date Recorded What is your living situation today? 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 Gender Identity Male 03/11/2024 4:43 PM CDT Sexual Orientation Straight 03/11/2024 4: 43 PM CDT Last Filed Vital Signs Vital Sign Reading Time Taken Comments Blood Pressure 133/100 07/02/2024 12:45 PM CDT Pulse 97 07/02/2024 12:30 PM CDT Temperature 36.9 C (98.4 F) 07/02/2024 12:30 PM CDT Respiratory Rate 22 07/02/2024 12:45 PM CDT Oxygen Saturation 96% 07/02/2024 12:30 PM CDT Inhaled Oxygen Concentration - - Weight 85 kg (187 lb 6.3 oz) 06/29/2024 9:59 AM CDT Height 164 cm (5' 4.57) 06/30/2024 1:12 PM CDT Body Mass Index 31.6 06/29/2024 9:59 AM CDT Plan of Treatment Not on file Procedures Procedure Name Priority Date/Time Associated Diagnosis Comments PHOSPHORUS (INORGANIC), S Routine 07/02/2024 7:29 AM CDT MAGNESIUM, S Routine 07/02/2024 7:29 AM CDT BASIC METABOLIC PANEL, S/P Routine 07/02/2024 7:29 AM CDT PHOSPHORUS (INORGANIC), S Routine 07/01/2024 10:06 AM CDT MAGNESIUM, S Routine 07/01/2024 10:06 AM CDT BASIC METABOLIC PANEL, S/P Routine 07/01/2024 10:06 AM CDT POTASSIUM, S/P Timed 06/30/2024 6:42 PM CDT MAGNESIUM, S Routine 06/30/2024 6:45 AM CDT PHOSPHORUS (INORGANIC), S Routine 06/30/2024 6:45 AM CDT COMPREHENSIVE METABOLIC PANEL, S/P Routine 06/30/2024 6:45 AM CDT POTASSIUM, S/P Timed 06/29/2024 6:19 PM CDT MAGNESIUM, S Routine 06/29/2024 10:09 AM CDT RENAL FUNCTION PANEL, S Routine 06/29/2024 10:09 AM CDT CBC WITH DIFFERENTIAL, B Routine 06/29/2024 10:[address] LUMBAR SPINE BY RECONSTRUCTION RAD - Semiurgent (Fast; most ED patients; some inpatients) 06/28/2024 7:[address] ABDOMEN PELVIS WITH IV CONTRAST RAD - Semiurgent (Fast; most ED patients; some inpatients) 06/28/2024 7:48 PM CDT MAGNESIUM, S STAT 06/28/2024 3:40 PM CDT PATIENT STATUS STAT 06/28/2024 2:02 PM CDT RENAL FUNCTION PANEL, S STAT 06/28/2024 2:02 PM CDT VENOUS BLOOD GAS W/O COOX STAT 06/28/2024 2:02 PM CDT POTASSIUM, S/P Timed 06/28/2024 11:37 AM CDT PATIENT STATUS STAT 06/28/2024 9:12 AM CDT VENOUS BLOOD GAS W/O COOX STAT 06/28/2024 9:12 AM CDT RENAL FUNCTION PANEL, S STAT 06/28/2024 9:11 AM CDT BILIRUBIN DIRECT, S/P STAT 06/28/2024 8:40 AM CDT LACTATE, B/P Timed 06/28/2024 8:40 AM CDT US LOWER EXTREMITY VEINS LEFT RAD - Semiurgent (Fast; most ED patients; some inpatients) 06/28/2024 8:33 AM CDT PHOSPHORUS (INORGANIC), S STAT 06/28/2024 8:31 AM CDT POCT BREATH ALCOHOL (ETOH) - NURSING STAT 06/28/2024 8:01 AM CDT VBG & LYTES CG8+, POCT, B STAT 06/28/2024 7:30 AM CDT ECG STAT 06/28/2024 5:36 AM CDT CRITICAL CARE Routine 06/28/2024 5:24 AM CDT LACTATE FOR SEPSIS WITH REFLEX, POCT STAT 06/28/2024 5:17 AM CDT VBG & LYTES CG8+, POCT, B STAT 06/28/2024 5:16 AM CDT MAGNESIUM, S STAT 06/28/2024 5:14 AM CDT HEPATIC FUNCTION PANEL, S STAT 06/28/2024 5:14 AM CDT LIPASE, S/P STAT 06/28/2024 5:14 AM CDT CBC WITH DIFFERENTIAL, B STAT 06/28/2024 5:14 AM CDT BASIC METABOLIC PANEL, S/P STAT 06/28/2024 5:14 AM CDT CREATINE KINASE (CK), S STAT 06/28/2024 5:09 AM CDT ECG STAT 06/28/2024 4:11 AM CDT from Last 3 Months Results * Phosphorus Inorganic (07/02/2024 7:29 AM CDT) Only the most recent of4 resultswithin the time period is included. Phosphorus (Inorganic), S 2.9 2.5 - 4.5 mg/dL 07/02/2024 8:40 AM CDT DTL Blood (Blood, Venous) 07/02/2024 7:29 AM CDT 07/02/2024 8:19 AM CDT Gilda Guo APRN, C.N.P., D.N.P. LAB BLOOD ADD-ON Final Result [facility] [address] [place] [address], [place] DTL [facility] [address] [place] [address] * Magnesium (07/02/2024 7:29 AM CDT) Only the most recent of6 resultswithin the time period is included. Magnesium, S 1.8 1.7 - 2.3 mg/dL 07/02/2024 8:40 AM CDT DTL Blood (Blood, Venous) 07/02/2024 7:29 AM CDT 07/02/2024 8:19 AM CDT Gilda Guo APRN, C.N.P., D.N.P. LAB BLOOD ADD-ON Final Result [facility] [address] [place] [address], [facility] [place] [place] [address] [place] [address] * (ABNORMAL) Basic Metabolic Panel (07/02/2024 7:29 AM CDT) Only the most recent of3 resultswithin the time period is included. Potassium, S 3.5(L) 3.6 - 5.2 mmol/L 07/02/2024 8:40 AM CDT DTL Sodium, S 135 135 - 145 mmol/L 07/02/2024 8:40 AM CDT DTL Chloride, S 100 98 - 107 mmol/L 07/02/2024 8:40 AM CDT DTL Bicarbonate, S 27 22 - 29 mmol/L 07/02/2024 8:40 AM CDT DTL Anion Gap 8 7 - 15 07/02/2024 8:40 AM CDT DTL BUN (Blood Urea Nitrogen), S 10 8 - 24 mg/dL 07/02/2024 8:40 AM CDT DTL Creatinine 0.98 0.74 - 1.35 mg/dL 07/02/2024 8:40 AM CDT DTL Estimated GFR (eGFR) 88 >=60 mL/min/BSA 07/02/2024 8:40 AM CDT DTL Comment: Estimated GFR calculated using the 2020 CKD_EPI creatinine equation. Calcium, Total, S 8.1(L) 8.8 - 10.2 mg/dL 07/02/2024 8:40 AM CDT DTL Glucose, S 87 70 - 140 mg/dL 07/02/2024 8:40 AM CDT DTL Blood (Blood, Venous) 07/02/2024 7:29 AM CDT 07/02/2024 8:19 AM CDT Gilda Guo APRN C.N.P., D.N.P. LAB BLOOD ADD-ON Final Result [facility] [address] [place] [address], [place] [address] * Potassium (06/30/2024 6:42 PM CDT) Only the most recent of3 resultswithin the time period is included. Potassium, S 3.6 3.6 - 5.2 mmol/L 06/30/2024 7:31 PM CDT DTL Blood (Blood, Venous) 06/30/2024 6:42 PM CDT 06/30/2024 7:23 PM CDT Gilda Guo APRN, C.N.P., D.N.P. LAB BLOOD ADD-ON Final Result Performing Organization Address City/[facility] Co de Phone Number [facility] [address] [place] [address], [facility] [address] [place] [address] * (ABNORMAL) Comprehensive Metabolic Panel (06/30/2024 6:45 AM CDT) Potassium, S 2.9(L) 3.6 - 5.2 mmol/L 06/30/2024 8:30 AM CDT DTL Sodium, S 136 135 - 145 mmol/L 06/30/2024 8:30 AM CDT DTL Chloride, S 98 98 - 107 mmol/L 06/30/2024 8:30 AM CDT DTL Bicarbonate, S 29 22 - 29 mmol/L 06/30/2024 8:30 AM CDT DTL Anion Gap 9 7 - 15 06/30/2024 8:30 AM CDT DTL BUN (Blood Urea Nitrogen), S 15 8 - 24 mg/dL 06/30/2024 8:30 AM CDT DTL Creatinine 1.08 0.74 - 1.35 mg/dL 06/30/2024 8:30 AM CDT DTL Estimated GFR (eGFR) 78 >=60 mL/min/BS A 06/30/2024 8:30 AM CDT DTL Comment: Estimated GFR calculated using the 2020 CKD_EPI creatinine equation. Calcium, Total, S 7.8(L) 8.8 - 10.2 mg/dL 06/30/2024 8:30 AM CDT DTL Glucose, S 77 70 - 140 mg/dL 06/30/2024 8:30 AM CDT DTL Protein, Total, S 4.3(L) 6.3 - 7.9 g/dL 06/30/2024 8:30 AM CDT DTL Albumin, S 2.5(L) 3.5 - 5.0 g/dL 06/30/2024 8:30 AM CDT DTL Aspartate Aminotransferase (AST), S 27 8 - 48 U/L 06/30/2024 8:30 AM CDT DTL Alkaline Phosphatase, S 64 40 - 129 U/L 06/30/2024 8:30 AM CDT DTL Alanine Aminotransferase (ALT), S 24 7 - 55 U/L 06/30/2024 8:30 AM CDT DTL Bilirubin, Total, S 0.9 0.0 - 1.2 mg/dL 06/30/2024 8:30 AM CDT DTL Blood (Blood, Venous) 06/30/2024 6:45 AM CDT 06/30/2024 8:08 AM CDT Gilda Guo APRN, C.N.P., D.N.P. LAB BLOOD ADD-ON Final Result [facility] food[employer]de [facility] [address] [place] [address], [place] DTL [facility] [address] [place] [address] * (ABNORMAL) Renal Function Panel (06/29/2024 10:09 AM CDT) Only the most recent of3 resultswithin the time period is included. Potassium, S 2.6(L) 3.6 - 5.2 mmol/L 06/29/2024 11:44 AM CDT DTL Sodium, S 136 135 - 145 mmol/L 06/29/2024 11:44 AM CDT DTL Chloride, S 91(L) 98 - 107 mmol/L 06/29/2024 11:44 AM CDT DTL Bicarbonate, S 33(H) 22 - 29 mmol/L 06/29/2024 11:44 AM CDT DTL Anion Gap 12 7 - 15 06/29/2024 11:44 AM CDT DTL BUN (Blood Urea Nitrogen), S 16 8 - 24 mg/dL 06/29/2024 11:44 AM CDT DTL Creatinine 0.99 0.74 - 1.35 mg/dL 06/29/2024 11:44 AM CDT DTL Estimated GFR (eGFR) 87 >=60 mL/min/BSA 06/29/2024 11:44 AM CDT DTL Comment: Estimated GFR calculated using the 2020 CKD_EPI creatinine equation. Calcium, Total, S 8.5(L) 8.8 - 10.2 mg/dL 06/29/2024 11:44 AM CDT DTL Glucose, S 111 70 - 140 mg/dL 06/29/2024 11:44 AM CDT DTL Albumin, S 3.1(L) 3.5 - 5.0 g/dL 06/29/2024 11:44 AM CDT DTL Phosphorus (Inorganic), S 2.6 2.5 - 4.5 mg/dL 06/29/2024 11:44 AM CDT DTL Blood (Blood, Venous) 06/29/2024 10:09 AM CDT 06/29/2024 11:09 AM CDT Eladio Sandhu M.D. LAB BLOOD ADD-ON Final Result [facility] [address] [place] [address], [facility] DTL [facility] [address] [place] [address] * (ABNORMAL) CBC with Differential, Blood (06/29/2024 10:09 AM CDT) Only the most recent of2 resultswithin the time period is included. Hemoglobin 11.9(L) 13.2 - 16.6 g/dL 06/29/2024 11:25 AM CDT DTL Hematocrit 33.5(L) 38.3 - 48.6 % 06/29/2024 11:25 AM CDT DTL Erythrocytes 4.03(L) 4.35 - 5.65 x10(12)/L 06/29/2024 11:25 AM CDT DTL MCV 83.1 78.2 - 97.9 fL 06/29/2024 11:25 AM CDT DTL RBC Distrib Width 14.1 11.8 - 14.5 % 06/29/2024 11:25 AM CDT DTL Platelet Count 216 135 - 317 x10(9)/L 06/29/2024 11:25 AM CDT DTL Leukocytes 4.8 3.4 - 9.6 x10(9)/L 06/29/2024 11:25 AM CDT DTL Neutrophils 2.94 1.56 - 6.45 x10(9)/L 06/29/2024 11:25 AM CDT DHPM Lymphocytes 1.22 0.95 - 3.07 x10(9)/L 06/29/2024 11:25 AM CDT DTL Monocytes 0.53 0.26 - 0.81 x10(9)/L 06/29/2024 11:25 AM CDT DTL Eosinophils 0.03 0.03 - 0.48 x10(9)/L 06/29/2024 11:25 AM CDT DTL Basophils 0.04 0.01 - 0.08 x10(9)/L 06/29/2024 11:25 AM CDT DTL Blood (Blood, Venous) 06/29/2024 10:09 AM CDT 06/29/2024 10:51 AM CDT Eladio Sandhu M.D. LAB BLOOD ADD-ON Final Result [facility] [address] [place] [address], [facility] DTL [facility] [address] [place] [address] [facility] [address] [place] [address] * CT Lumbar Spine by Reconstruction (06/28/2024 7:48 PM CDT) Anatomical Region Laterality Modality Lumbar Spine, Neuroradiology RST LOS, Neuroradiology ARZ LOS, Neuroradiology FLA LOS N/A Computed Tomography, Compute d Tomography Impressions 06/28/2024 7:54 PM CDT 1. No lumbar spine fractures. 2. Multilevel lumbar spondylosis with no significant canal or foraminal narrowing. Narrative 06/28/2024 7:54 PM CDT EXAM: CT LUMBAR SPINE BY RECONSTRUCTION COMPARISON: CT the abdomen and pelvis without IV contrast performed at [facility] February 03, 2024. FINDINGS: Negative for traumatic malalignment, abnormal paravertebral soft tissue, or fracture. Mild dextroconvex lumbar curvature. Mild retrolisthesis of L1 on L2, L3 on L4, and L5 on S1. Mild anterolisthesis of L4 and L5. Multilevel lumbar spondylosis. Degenerative disc disease greatest at L5-S1. Mild canal narrowing from L2-L5 from a combination of dorsal disc bulges, facet hypertrophy, and ligamentum flavum hypertrophy. Multilevel foraminal narrowing is greatest bilaterally at L5-S1 where it is mild. Degenerative changes of the sacroiliac joints. Please see separately dictated report of the abdomen and pelvis for additional findings. Procedure Note Asif Brito M.D., M.P.H. - 06/28/2024 EXAM: CT LUMBAR SPINE BY RECONSTRUCTION COMPARISON: CT the abdomen and pelvis without IV contrast performed [facility] February 03, 2024. FINDINGS: Negative for traumatic malalignment, abnormal paravertebral softtissue, or fracture. Mild dextroconvex lumbar curvature. Mild retrolisthesis of L1 on L2, L3 onL4, and L5 on S1. Mild anterolisthesis of L4 and L5. Multilevel lumbarspondylosis. Degenerative disc disease greatest at L5-S1. Mild canalnarrowing from L2-L5 from a combination of dorsal disc bulges, facet hypertrophy, and ligamentum flavumhypertrophy. Multilevel foraminal narrowing is greatest bilaterally atL5-S1 where it is mild. Degenerative changes of the sacroiliac joints. Please see separatelydictated report of the abdomen and pelvis for additional findings. IMPRESSION: 1. No lumbar spine fractures. 2. Multilevel lumbar spondylosis with no significant canal or foraminalnarrowing. Eladio Sandhu M.D. [facility] PROCEDURES Final Result * CT Abdomen Pelvis with IV Contrast (06/28/2024 7:48 PM CDT) Anatomical Region Laterality Modality Abdomen, Pelvis, Abdominal R ST LOS, Abdominal ARZ LOS, Abdominal FLA LOS N/A Computed Tomograp hy, Computed Tomography 06/28/2024 7:40 PM CDT Impressions 06/28/2024 8:19 PM CDT 1. Findings most suggestive of esophagitis. Recommend follow-up CT or endoscopy after treatment to exclude any underlying mass. 2. Diffuse hepatic steatosis. 3. Please see separate report for spine findings. Narrative 06/28/2024 8:19 PM CDT EXAM: CT ABDOMEN PELVIS WITH IV CONTRAST COMPARISON: CT abdomen pelvis 02/03/2024 FINDINGS: Diffuse hepatic steatosis. Bilateral renal cysts, including a large right parapelvic cyst. Sigmoid diverticulosis. Fatty infiltration of the wall of the ascending colon and terminal ileum, likely related to chronic inflammation. Stable lipoma in the ascending colonic wall. Bibasilar atelectasis. Similar mild lymph node prominence such as in the porsche hepatis and retrocaval space. Mild chronic mesenteric inflammation. Small esophageal hiatal hernia. Diffuse esophageal wall thickening and paraesophageal edema and stranding in the lower esophagus with prominent but subcentimeter surrounding paraesophageal nodes (for example series 3 image 29). Presumed anterior abdominal wall injections. Procedure Note Gene Craig M.D., M.S. - 06/28/2024 EXAM: CT ABDOMEN PELVIS WITH IV CONTRAST COMPARISON: CT abdomen pelvis 02/03/2024 FINDINGS: Diffuse hepatic steatosis. Bilateral renal cysts, including a large rightparapelvic cyst. Sigmoid diverticulosis. Fatty infiltration of the wall ofthe ascending colon and terminal ileum, likely related to chronicinflammation. Stable lipoma in the ascending colonic wall. Bibasilar atelectasis. Similar mild lymph nodeprominence such as in the porsche hepatis and retrocaval space. Mild chronicmesenteric inflammation. Small esophageal hiatal hernia. Diffuse esophageal wall thickening andparaesophageal edema and stranding in the lower esophagus with prominentbut subcentimeter surrounding paraesophageal nodes (for example series 3image 29). Presumed anterior abdominal wall injections. IMPRESSION: 1. Findings most suggestive of esophagitis. Recommend follow-up CT orendoscopy after treatment to exclude any underlying mass. 2. Diffuse hepatic steatosis. 3. Please see separate report for spine findings. us Eladio Sandhu M.D. IMG CT PROCEDURES Final Result * Patient Status (06/28/2024 2:02 PM CDT) Only the most recent of2 resultswithin the time period is included. [facility] [address] FIO2 0.21 0.21=AIR 06/28/2024 2:09 PM CDT STMA Spont. breaths/min 23 06/28/2024 2:09 PM CDT [facility] Blood 06/28/2024 2:02 PM CDT 06/28/2024 2:09 PM CDT us Eladio Sandhu M.D. LAB BLOOD NON ADD-ON Final Res ult [facility] [address] [place] [address], [facility] [address] [place] [address] * (ABNORMAL) Blood Gas without Coox, Venous (06/28/2024 2:02 PM CDT) Only the most recent of2 resultswithin the time period is included. [facility] [address] pO2, Venous, B 61 Not applicable mm Hg 06/28/2024 2:12 PM CDT STMA pCO2, Venous, B 43 41 - 51 mm Hg 06/28/2024 2:12 PM CDT STMA pH, Venous, B 7.52(H) 7.32 - 7.43 pH 024 2:12 PM CDT STMA Base Excess, Venous, B 11 Not applicable mmol/L 06/28/2024 2:12 PM CDT STMA HCO3, Venous, B 35 Not applicable mmol/L 06/28/2024 2:12 PM CDT STMA Blood (Blood, Venous) 06/28/2024 2:02 PM CDT 06/28/2024 2:09 PM CDT Eladio Sandhu M.D. LAB BLOOD NON ADD-ON Final Res ult Performing Organization Address City/[facility]/ZIP Co de Phone Number [facility] [address] [place] [address], [facility] [address] [place] [address] * Lactate (06/28/2024 8:40 AM CDT) Pathologist [facility] Lactate, P 1.4 0.5 - 2.2 mmol/L 06/28/2024 9:06 AM CDT STMA Blood 06/28/2024 8:40 AM CDT 06/28/2024 8:46 AM CDT Yaakov Clifton M.D. LAB BLOOD NON ADD-ON Fi nal Result Performing Organization Address City/[facility]/ZIP Co de Phone Number [facility] [address] [place] [address], [facility] [address] [place] [address] * (ABNORMAL) Bilirubin, Direct (06/28/2024 8:40 AM CDT) Bilirubin, Direct, S 1.0(H) 0.0 - 0.3 mg/dL 06/28/2024 9:27 AM CDT DTL Blood 06/28/2024 8:40 AM CDT 06/28/2024 9:09 AM CDT Dean Ching M.D., M.B.A. LAB BLOOD ADD-ON Fi nal Result [facility] [address] [place] [address], [facility] [place] [facility] [place] [address] [place] [address] * US Lower Extremity Veins Left (06/28/2024 8:33 AM CDT) Anatomical Region Laterality Modality Lower Extremity, Ultrasound RST LOS, Ultrasound ARZ LOS, Ultrasound FLA LOS Left Ultrasound Impressions 06/28/2024 8:51 AM CDT Negative for acute DVT in the visualized deep veins in the left lower extremity. Narrative 06/28/2024 8:51 AM CDT EXAM: US LOWER EXTREMITY VEINS LEFT Exam performed with color and spectral Doppler analysis. COMPARISON: None. FINDINGS: Limited exam due to patient's back pain. LEFT: Common Femoral Vein: Negative. Profunda Femoral Vein: Negative. Femoral Vein: Negative. Popliteal Vein: Negative. Gastrocnemius Veins: Negative where seen. Soleal Veins: Not well seen. Posterior Tibial Veins: Negative where seen. Peroneal Veins: Negative where seen. Great Saphenous Vein: Not well seen. Small Saphenous Vein: Not evaluated. Popliteal Fossa: Negative. Other: n/a Information on venous thrombosis and management can be found on the [employer] site. Link [email or web address] Procedure Note Natalio Peterson M.D. - 06/28/2024 EXAM: US LOWER EXTREMITY VEINS LEFT Exam performed with color and spectral Doppler analysis. COMPARISON: None. FINDINGS: Limited exam due to patient's back pain. LEFT: Common Femoral Vein: Negative. Profunda Femoral Vein: Negative. Femoral Vein: Negative. Popliteal Vein: Negative. Gastrocnemius Veins: Negative where seen. Soleal Veins: Not well seen. Posterior Tibial Veins: Negative where seen. Peroneal Veins: Negative where seen. Great Saphenous Vein: Not well seen. Small Saphenous Vein: Not evaluated. Popliteal Fossa: Negative. Other: n/a Information on venous thrombosis and management can be found on theAskUpmann's site. [email or web address] [email or web address]/topic/clinical-answers/[email or web address]/[facility] -2049 1725 IMPRESSION: Negative for acute DVT in the visualized deep veins in the left lowerextremity. Dean Ching M.D., M.B.A. IMG US PROCEDURES F inal Result * Breath Alcohol (ETOH), POCT - Nursing (06/28/2024 8:01 AM CDT) [facility] Breath Alcohol, POCT 0.00 QC Pass/Fail Pass Gm/[employer] DAVE ID [id number] Breath (Mouth) 06/28/2024 8: 01 AM CDT Trinity Farooq P.A.-C., M.S. LAB POCT ORDERABL ES-MANUAL Final Result * (ABNORMAL) Venous Blood Gas and Electrolytes CG8+, POCT (06/28/2024 7:30 AM CDT) Only the most recent of2 resultswithin the time period is included. [facility] [address] Sample Site, POCT Venstick 06/28/2024 7:38 AM CDT PCLX Comment: ----ADDITIONAL INFORMATION---- Performed at the Point of Care pH, Venous, POCT, B 7.66(H) 7.32 - 7.43 06/28/2024 7:38 AM CDT PCSM Comment: ----ADDITIONAL INFORMATION---- Performed at the Point of Care pCO2, Venous, POCT, B 38(L) 41 - 51 mm Hg 06/28/2024 7:38 AM CDT PCSM Comment: ----ADDITIONAL INFORMATION---- Performed at the Point of Care pO2, Venous, POCT, B 61 Not Applicable mm Hg 06/28/2024 7:38 AM CDT PCSM Comment: ----ADDITIONAL INFORMATION---- Performed at the Point of Care Base Excess, Venous, POCT, B 23 Not Applicable mmol/L 06/28/2024 7:38 AM CDT PCSM Comment: ----ADDITIONAL INFORMATION---- Performed at the Point of Care HCO3, Venous, POCT, B 43 Not Applicable mmol/L 06/28/2024 7:38 AM CDT PCSM Comment: ----ADDITIONAL INFORMATION---- Performed at the Point of Care Sodium, POCT, B 128(L) 135 - 145 mmol/L 06/28/2024 7:38 AM CDT PCLX Comment: ----ADDITIONAL INFORMATION---- Performed at the Point of Care Potassium, POCT, B 2.2(CL) 3.6 - 5.2 mmol/L 06/28/2024 7:38 AM CDT PCLX Comment: ----ADDITIONAL INFORMATION---- Performed at the Point of Care Calcium, Ionized, POCT, B 4.00(L) 4.65 - 5.30 mg/dL 06/28/2024 7:38 AM CDT PCLX Comment: ----ADDITIONAL INFORMATION---- Performed at the Point of Care Glucose, POCT, B 119 70 - 140 mg/dL 06/28/2024 7:38 AM CDT PCLX Comment: ----ADDITIONAL INFORMATION---- Performed at the Point of Care Hematocrit, POCT, B 38.0(L) 38.3 - 48.6 % 06/28/2024 7:38 AM CDT PCLX Comment: ----ADDITIONAL INFORMATION---- Performed at the Point of Care Blood (Blood, Venous) 06/28/2024 7:30 AM CDT 06/28/2024 7:30 AM CDT Trinity Farooq P.A.-C., M.S. LAB POCT ORDERABL ES - DEVICE Final Result [facility] [address] [place] [address], [place] PCLX [facility] P[facility] [address] [place] [address] PCSM [facility] POC [address] [place] [address] * ECG 12 Lead (06/28/2024 5:36 AM CDT) Only the most recent of2 resultswithin the time period is included. Ventricular Rate ECG/Min 127 BPM MUSE [place] Interval 208 ms MUSE QRSD Interval 92 ms MUSE QT Interval 238 ms MUSE QTC Interval 345 ms MUSE P [place] 53 degrees MUSE R [place] 80 degrees MUSE T Wave [place] 158 degrees MUSE 06/28/2024 5:36 AM CDT 06/28/2024 5:40 AM CDT Impressions MUSE - 06/28/2024 5:40 AM CDT Sinus tachycardia with 1st degree A-V block Supraventricular premature complexes with aberrant conduction Supraventricular premature complexes Premature ventricular complexes Cannot rule out Inferior infarct Nonspecific ST and T wave abnormality When compared with ECG of 28-Jun-2024 04:11, Supraventricular premature complexes are now present aberrant conduction is now present Reviewed by MERRICK Sorenson Narrative Procedure Note Spencer Siegel M.D., M.P.H. - 06/28/2024 IMPRESSION: Sinus tachycardia with 1st degree A-V block Supraventricular premature complexes with aberrant conduction Supraventricular premature complexes Premature ventricular complexes Cannot rule out Inferior infarct Nonspecific ST and T wave abnormality When compared with ECG of 28-Jun-2024 04:11, Supraventricular premature complexes are now present aberrant conduction is now present Reviewed by MERRICK Sorenson us Yaakov Clifton M.D. ECG ORDERABLES Final R esult MUSE NA * Critical Care (06/28/2024 5:24 AM CDT) Narrative Yaakov Clifton M.D. - 06/28/2024 5:24 AM CDT Yaakov Clifton M.D. 06/28/2024 5:24 AM Critical Care Performed by: Yaakov Clifton M.D. Authorized by: Yaakov Clifton M.D. Critical care provider statement: Critical care total time (minutes): 30 Critical care time was exclusive of: separately billable procedures and treating other patients and teaching time Critical care was necessary to treat or prevent imminent or life-threatening deterioration of the following conditions: metabolic crisis (severe hypokalemia) Critical care was time spent personally by me on the following activities: ordering and performing treatments and interventions, ordering and review of laboratory studies, pulse oximetry, re-evaluation of patient's condition, review of old charts, examination of patient and evaluation of patient's response to treatment Yaakov Clifton M.D. PROCEDURE/MINOR SURGICA L ORDERABLES Final Result * (ABNORMAL) Lactate for Sepsis with Reflex, POCT (06/28/2024 5:17 AM CDT) Lactate, POCT 2.32(H) 0.50 - 2.20 mmol/L 06/28/2024 5:25 AM CDT PCLX Blood (Blood, Venous) 06/28/2024 5:17 AM CDT 06/28/2024 5:17 AM CDT Yaakov Clifton M.D. LAB POCT ORDERABLES - D EVICE Final Result POC [facility] SERVICES [address] [place] [address], [facility] PCLX [facility] POC [address] [place] [address] * (ABNORMAL) Hepatic Function Panel (06/28/2024 5:14 AM CDT) Bilirubin, Total, S 2.9(H) 0.0 - 1.2 mg/dL 06/28/2024 6:26 AM CDT DTL Bilirubin, Direct, S CANCELED mg/dL 06/11 7:10 AM CDT DTL Comment: Specimen was hemolyzed. Redraw has been ordered and is in progress. Result canceled by the ancillary. Aspartate Aminotransferase (AST), S 43 8 - 48 U/L 06/28/2024 7:15 AM CDT DTL Comment: Specimen was received with hemolysis slightly above the acceptable threshold. The AST result may be falsely elevated by 5-10 U/L due to this degree of hemolysis. Interpret in conjunction with other laboratory and clinical findings. Alanine Aminotransferase (ALT), S 38 7 - 55 U/L 06/28/2024 6:26 AM CDT DTL Alkaline Phosphatase, S 88 40 - 129 U/L 06/28/2024 6:26 AM CDT DTL Albumin, S 3.5 3.5 - 5.0 g/dL 06/28/2024 6:26 AM CDT DTL Protein, Total, S 5.8(L) 6.3 - 7.9 g/dL 06/28/2024 6:26 AM CDT DTL Blood (Blood, Venous) 06/28/2024 5:14 AM CDT 06/28/2024 5:46 AM CDT Yaakov Clifton M.D. LAB BLOOD ADD-ON Final Result Performing Organization Address City/[facility]/ZIP Co de Phone Number [facility] [address] [facility] [place] [place] [address] [place] [address] * (ABNORMAL) Lipase (06/28/2024 5:14 AM CDT) Lipase, S 244(H) 13 - 60 U/L 06/28/2024 6:26 AM CDT DTL Blood (Blood, Venous) 06/28/2024 5:14 AM CDT 06/28/2024 5:46 AM CDT Yaakov Clifton M.D. LAB BLOOD ADD-ON Final Result [facility] [address] [place] [address], [facility] DTL [facility] [address] [place] [address] * CK (Creatine Kinase) (06/28/2024 5:09 AM CDT) Creatine Kinase (CK), S 237 39 - 308 U/L 06/28/2024 6:50 AM CDT DTL Blood (Blood, Venous) 06/28/2024 5:09 AM CDT 06/28/2024 6:32 AM CDT Yaakov Clifton M.D. LAB BLOOD ADD-ON Final Result [facility] [address] [place] [address], [place] [facility] [place] [facility] [place] [address] [place] [address] from Last 3 Months Insurance [facility] Advance Directives For more information, please contact: [phone] * Full Code (Latest Code Status on File) Date Activated Date Inactivated Comments 06/28/2024 9:01 AM 07/02/2024 4:34 PM Question Answer Comments Full Code: Not Discussed Due to: Patient does not have the capaci ty * Full Code Date Activated Date Inactivated Comments 02/04/2024 12:08 AM 02/13/2024 5:33 PM Question Answer Comments Full Code: Discussed * Full Code Date Activated Date Inactivated Comments 02/03/2024 11:06 PM 02/04/2024 12:08 AM Question Answer Comments Full Code: Not Discussed Due to: Patient not available Care Teams Soil Field Technician Relationship Specialty Start Date End Date Cassidy Espinoza APRN, C.N.P. [address] [place] [phone] PCP - General Family Medicine 07/01/24
--- OUTSIDE RECORDS SUMMARY | 2024-09-26 10:24 | XMS_ITS | Clinical Summary ---
Author Organization [facility] Address [address] [place] [address] Care Team Providers Care Agricultural Engineering Technologist Name Role Phone Cassidy Espinoza APRN, C.N.P. Primary Care Provide r Source Comments Patient records contain information from all sites at [facility]. For routine questions regarding patient records, call [phone] during business hours, M-F 8:00 AM - 5:00 PM Central Time. Record requests for emergency care only can be directed to [phone] at any time.[facility] Allergies Active Allergy Reactions Criticality Noted Date [...] 90 capsule 1 07/02/2024 2:29 PM CDT Active multivitamin with folic acid (One Daily [...] Primary 11/07/2012 Overview (01/31/2017): Hypertension Essential (401.9) Encounters Date Type Department Care Team Description 07/16/2024 Orders Only [facility] PCP [facility] Cassidy Espinoza, DRAPERY SUPERVISOR, C.N.P. Screening Lipid 06/28/2024 4:02 AM CDT - 07/02/2024 1:47 PM CDT Hospital Encounter [facility], [facility], Fourth Floor [address] [place] [phone] Yaakov Clifton M.D. Utley, Madeline L P.A.-Rosalina, M.S. Mati Hickman M.D. Mensah, Elsie T, M.D., M.S. Alcohol Withdrawal Syndrome (HCC) (Primary Dx); Hypokalemia; Hyponatremia; Hypomagnesemia; Hypocalcemia; Pain Back; Pain Leg Left; Decline Functional Status [R53.81] Discharge Disposition: Home or Self Care from Last 3 Months Immunizations Name Administration Dates Next Due HepB Adult 08/22/2001,03/08/2001,01/22/2001 Td (Adult), adsorbed 09/02/2004 Tdap 11/02/2011 Social History Tobacco Use Types Packs/Day Years Used Date Smoking Tobacco: Former Cigarettes 0.3 20 0 09/11/1982 - 11/10/2023 Smokeless Tobacco: Never Alcohol Use Standard Drinks/Week Comments Yes 20 (1 standard drink = 0.6 oz pu re alcohol) 10-20 shots a day [facility] Answer Date Recorded In the past 12 months has [facility] [employer] gas, oil, or water [email or web address] threatened to shut off services in your [...] your living situation today? 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 Gender Identity Male 03/11/2024 4:43 PM CDT [...] 06/29/2024 9:59 AM CDT Plan of Treatment Health Maintenance Due Date Last Done Comments CT Colonography 1962 Cologuard 1962 Colonoscopy 1962 Colorectal Cancer Screening 1962 FIT 1962 Lipid (Cholesterol) Screening 1962 Pneumococcal vaccine (0-49 years) (1 of 2 - PCV) 1968 Pneumococcal vaccine (50+ years) (1 of 2 - PCV) 1981 Zoster Vaccines (1 of 2) 2012 DTaP,Tdap,and Td Vaccines (2 - Td or Tdap) 11/02/2021 11/02/2011, 09/02/2004 RSV vaccine - (32-36 weeks) or 60+ years (1 - Risk 60-74 years 1-dose series) 2022 COVID-19 Vaccine ( - 2023- season) 2024 Influenza Vaccine (#1) 2024 Office Visit for Blood Pressure Check / Re-check 06/12/2024 03/12/2024 Visit: Chronic Disease, age 18+ 03/12/2025 03/12/2024 Fasting Glucose for Diabetes Screening 07/02/2027 07/02/2024, 07/01/2024, 06/30/2024, Additional history exists Hepatitis B Vaccines Completed 08/22/2001, 03/08/2001, 01/22/2001 Depression Screening (Annual PHQ-2) Completed 03/12/2024, 03/11/2024 IPV Vaccines Aged Out No longer eligi ble based on patient's age to complete this topic Procedures Procedure Name Priority Date/Time Associated Diagnosis [...] BLOOD ADD-ON Final Result Performing Organization Address [facility]/ZIP Co de Phone Number [facility] [address] [place] [address], [facility] [address] [place] [address] * Magnesium (07/02/2024 7:29 AM CDT) Only the most recent of6 resultswithin the time period is included. Magnesium, S 1.8 1.7 - 2.3 mg/dL 07/02/2024 8:40 AM CDT DTL Blood (Blood, Venous) 07/02/2024 7:29 AM CDT 07/02/2024 8:19 AM CDT Gilda Guo APRN, C.N.P., D.N.P. LAB BLOOD ADD-ON Final Result [facility] [address] [place] [address], [facility] DTL [facility] [address] [place] [address] * (ABNORMAL) Basic Metabolic Panel (07/02/2024 7:29 [...] C.N.P., D.N.P. LAB BLOOD ADD-ON Final Result [facility] [address] [place] [address], [facility] [address] [place] [address] * Potassium (06/30/2024 6:42 PM CDT) Only the most recent of3 resultswithin the time period is included. Potassium, S 3.6 3.6 - 5.2 mmol/L 06/30/2024 7:31 PM CDT DTL Blood (Blood, Venous) 06/30/2024 6:42 PM CDT 06/30/2024 7:23 PM CDT Gilda Guo APRN, C.N.P., D.N.P. LAB BLOOD ADD-ON Final Result [facility] [address] [place] [address], [facility] [address] [place] [address] * (ABNORMAL) Comprehensive Metabolic Panel (06/30/2024 6:45 [...] C.N.P., D.N.P. LAB BLOOD ADD-ON Final Result [facility] [address] [place] [address], [facility] [address] [place] [address] * (ABNORMAL) Renal Function Panel (06/29/2024 10:09 [...] Sandhu M.D. LAB BLOOD ADD-ON Final Result [facility] [address] [place] [address], [facility] [address] [place] [address] * (ABNORMAL) CBC with Differential, Blood (06/29/2024 [...] Sandhu M.D. LAB BLOOD ADD-ON Final Result [facility] [address] [place] [address], [place] DTL [facility] [address] [place] [address] DHPM [facility] [address] [place] [address] * CT Lumbar Spine by Reconstruction (06/28/2024 [...] and pelvis without IV contrast performed at [facility] February 03, 2024. FINDINGS: Negative for traumatic [...] [facility] FINDINGS: Negative for traumatic [...] significant canal or foraminalnarrowing. Eladio Sandhu M.D. [facility] CT PROCEDURES Final Result * CT Abdomen [...] of2 resultswithin the time period is included. FIO2 0.21 0.21=AIR 06/28/2024 2:09 PM CDT STMA Spont. breaths/min 23 06/28/2024 2:09 PM CDT STMA Blood 06/28/2024 2:02 PM CDT 06/28/2024 2:09 PM CDT us Eladio Sandhu M.D. LAB BLOOD NON ADD-ON Final Res ult [facility] [address] [place] [address], [facility] [address] [place] [address] * (ABNORMAL) Blood Gas without Coox, Venous (06/28/2024 2:02 PM CDT) Only the most recent of2 resultswithin the time period is included. pO2, Venous, B 61 Not applicable mm [...] ADD-ON Final Res ult Performing Organization Address City/[facility] Co de Phone Number [facility] [address] [place], [place] [id number] [place] [address] [address] [place] [address] * Lactate (06/28/2024 8:40 AM CDT) Lactate, P 1.4 0.5 - 2.2 mmol/L 06/28/2024 9:06 AM CDT STMA Blood 06/28/2024 8:40 AM CDT 06/28/2024 8:46 AM CDT Yaakov Clifton M.D. LAB BLOOD NON ADD-ON Fi nal Result Performing Organization Address [facility] Co de Phone Number [facility] [address] [place] [address], [facility] [address] [place] [address] * (ABNORMAL) Bilirubin, Direct (06/28/2024 8:40 AM CDT) Bilirubin, Direct, S 1.0(H) 0.0 - 0.3 mg/dL 06/28/2024 9:27 AM CDT DTL Blood 06/28/2024 8:40 AM CDT 06/28/2024 9:09 AM CDT Dean Ching M.D., M.B.A. LAB BLOOD ADD-ON Fi nal Result Performing Organization Address City/[facility] Co de Phone Number [facility] [address] [place] [address], [facility] [address] [place] [address] * US Lower Extremity Veins Left (06/28/2024 [...] and management can be found on the [employer] site. Link https://[employer]/topic/clinical-answers/cnt-34267413/cpm-204 35603 Procedure Note Natalio Peterson M.D. - 06/28/2024 [...] thrombosis and management can be found on the[employer] site. Linkhttps://[employer]/topic/clinical-answers/cnt-14502301/cpm -2049 1725 IMPRESSION: Negative for acute DVT in the visualized deep veins in the left lowerextremity. Dean Ching M.D., M.B.A. IMG US PROCEDURES F inal Result * Breath Alcohol (ETOH), POCT - Nursing (06/28/2024 8:01 AM CDT) [facility] Breath Alcohol, POCT 0.00 QC Pass/Fail Pass Food Writer DAVE ID [id number] Breath (Mouth) 06/28/2024 8: 01 AM CDT Trinity Farooq P.A.-C., M.S. LAB POCT ORDERABL ES-MANUAL Final Result * (ABNORMAL) Venous Blood Gas and Electrolytes CG8+, POCT (06/28/2024 7:30 AM CDT) Only the most recent of2 resultswithin the time period is included. [facility] Sample Site, POCT Venstick 06/28/2024 7:38 AM [...] POCT ORDERABL ES - DEVICE Final Result POC [facility] [address] [place] [address], [facility] PCLX [facility] POC [address] [place] [address] PCSM [facility] POC [address] [place] [address] * ECG 12 Lead (06/28/2024 5:36 AM CDT) Only the most recent of2 resultswithin the time period is included. Ventricular Rate ECG/Min 127 BPM MUSE [place] Interval 208 ms MUSE QRSD Interval 92 ms MUSE QT Interval 238 ms MUSE QTC Interval 345 ms MUSE P [place] 53 degrees MUSE R [place] 80 degrees MUSE T Wave [place] 158 degrees MUSE 06/28/2024 5:36 AM CDT [...] and evaluation of patient's response to treatment us Yaakov Clifton M.D. PROCEDURE/MINOR SURGICA L ORDERABLES Final Result * (ABNORMAL) Lactate for Sepsis with Reflex, POCT (06/28/2024 5:17 AM CDT) Lactate, POCT 2.32(H) 0.50 - 2.20 mmol/L 06/28/2024 5:25 AM CDT PCLX Blood (Blood, Venous) 06/28/2024 5:17 AM CDT 06/28/2024 5:17 AM CDT us Yaakov Clifton M.D. LAB POCT ORDERABLES - D EVICE Final Result POC [facility] [address] [place] [address], [facility] PCLX [facility] POC [address] [place] [address] * (ABNORMAL) Hepatic Function Panel (06/28/2024 5:14 [...] Clifton M.D. LAB BLOOD ADD-ON Final Result [facility] [address] [place] [address] * (ABNORMAL) Lipase (06/28/2024 5:14 AM CDT) Lipase, S 244(H) 13 - 60 U/L 06/28/2024 6:26 AM CDT DTL Blood (Blood, Venous) 06/28/2024 5:14 AM CDT 06/28/2024 5:46 AM CDT Yaakov Clifton M.D. LAB BLOOD ADD-ON Final Result Performing Organization Address City/[facility]/ZIP Co de Phone Number [facility] [address] [place] [address], [facility] [address] [place] [address] * CK (Creatine Kinase) (06/28/2024 5:09 AM CDT) Creatine Kinase (CK), S 237 39 - 308 U/L 06/28/2024 6:50 AM CDT DTL Blood (Blood, Venous) 06/28/2024 5:09 AM CDT 06/28/2024 6:32 AM CDT us Yaakov Clifton M.D. LAB BLOOD ADD-ON Final Result [facility] [address] [place] [address] from Last 3 Months Insurance [employer] Advance Directives For more information, please contact: [phone] * Full Code (Latest Code Status on [...] Due to: Patient not available Care Teams Agricultural Engineering Technologist Relationship Specialty Start Date End Date Cassidy Espinoza APRN, C.N.P. [address] [place] [phone] PCP - General Family Medicine 07/01/24
[2024-09-26] MEDS: 0.9 % SODIUM CHLORIDE 1000 ml 1,000 ML IV (10:30)
[2024-09-26] MEDS: PANTOPRAZOLE SODIUM 40 MG INJ 80 MG IVP (10:37)
[2024-09-26] MEDS: 0.9 % SODIUM CHLORIDE 1000 ml 1,000 ML 6000 ML IV ×2 (10:45→11:04)
[2024-09-26] MEDS: 0.9 % SODIUM CHLORIDE 500 ML 250 ML IV (10:45)
[2024-09-26] MEDS: cefTRIAXone 1 GM in 0.9 % SODIUM CHLORIDE Mini-bag 100 ML IVPB (11:00)
--- NOTE | 2024-09-26 11:29 | P.ANBPRC_ITS ---
[facility] Social History (Updated 02/04/24 @ 00:12 by Shireen Jaimes MD) Smoking Status: Former smoker What tobacco products do you use: cigarettes Smoking quit date/years: <= 15 years ago How often do you have a drink containing alcohol: 4 or more times a week How many standard drinks containing alcohol do you have on a typical day: 10 or more How often do you have six or more drinks on one occasion: Daily or almost daily AUDIT-C Alcohol total score: 12 Non-prescribed substance use: denies use Meds Home Medications and Allergies Home Medications ?Medication ?Instructions ?Recorded ?Confirmed ?Type omeprazole magnesium 10 mg oral 20 mg PO BID 09/26/24 09/26/24 History suspension,delayed release (Prilosec) Allergies Allergy/AdvReac Type Severity Reaction Status Date / Time Penicillins Allergy Severe Verified 09/26/24 10:30 Anesthesia Procedures Airway Patient Location: ED Urgency: emergent Start Time: 11:07 Stop Time: 11:30 Start Date: 09/26/24 Stop Date: 09/26/24 RUBBER COMPOUNDER MIXER: Inge Rodas Performed by: GREGG Preanesthetic Checklist: IV checked, risks and benefits discussed, monitors and equipment checked, pre-op evaluation, timeout performed and anesthesia consent Difficult Airway: No Indications for Airway Management: cardiovascular instability (upper GI bleed) Spontaneous Ventilation: present Sedation Level: deep Preoxygenated: Yes Patient Position: other (sitting) Mask Difficulty Assessment: 0 - not attempted (RSI) Planned Trial Extubation: No Final Airway Details: Intubated with glidescope blade 3, 8.0 ETT, 22 cm at the teeth. Final Airway Type: endotracheal airway Number of Attempts at Approach: 1 Number of Other Approaches Attempted: 0 Dentition Unchanged: Yes
[2024-09-26 11:30] LABS: Ammonia* 40.9 umol/L (13.1-30.0); INR 1.42 (0.91-1.10); Partial Thromboplastin Time* 31 Seconds (23-33); Prothrombin Time 18.3 Seconds
[2024-09-26 11:30] LABS: Basophils Percent Auto 0.1 % (0.0-3.0); Hematocrit 28.2 % (37.0-53.0); Hemoglobin* 8.4 gm/dL (13.5-17.5); Immature Granulocytes Pct Auto 0.6 %; Lymphocytes Percent Auto 7.5 % (20-44); Mean Corpuscular HGB Conc 30 gm/dL (32-36); Mean Corpuscular Hemoglobin 25 pg (26-34); Mean Corpuscular Volume 84 fL (80-100); Monocytes Percent Auto 6.6 % (0.0-11.0); Neutrophils Percent Auto 85.2 % (42.0-72.0); Platelet Count* 251 K/uL (140-440); RDW Coefficient of Variation % 16.4 % (11.5-15.5); Red Blood Count 3.35 m/uL (4.30-5.90); White Blood Count* 12.34 K/uL (4.50-11.00)
--- NOTE | 2024-09-26 11:31 | ED.GENADULT ---
HPI - General Adult General Date Seen: 09/26/24 Chief complaint: GI Bleed Stated complaint: GI bleed/weakness Time Seen by Provider: 09/26/24 11:31 Source: patient and EMS Mode of arrival: EMS Limitations: no limitations History of Present Illness HPI narrative: 63-year-old male presenting to ER today with GI bleeding and critically low blood pressure. Patient has been having up melena and hematemesis for the past 4 days. He states he got worse yesterday. EMS states that there was a large amount of blood seen throughout his house. He he states he has been very lightheaded the past few days also and has fallen. Denies a current headache right now but stills feels like he is going to pass out. He is very nauseated and is vomiting multiple times. He states these ago like same thing happen to him back in January and he was sent to [facility]. There they told him is bleeding is from his alcoholism will do not give him an exact diagnosis as far as he is aware. He also has subdural hematoma at that time that was treated conservatively. Denies any chest pain but he is feeling short of breath. He does not have cirrhosis as far as he is aware. He last saw a doctor in July for a well visit he states everything was good at that time. Related Data Home Medications ?Medication ?Instructions ?Recorded ?Confirmed omeprazole magnesium 10 mg oral 20 mg PO BID 09/26/24 09/26/24 suspension,delayed release (Prilosec) Allergies Allergy/AdvReac Type Severity Reaction Status Date / Time Penicillins Allergy Severe Verified 09/26/24 10:30 Review of Systems Status of ROS: Reports: 10 or more systems reviewed and unremarkable except as noted in History and below PFSH [facility] Social History Smoking Status: Former smoker What tobacco products do you use: cigarettes Smoking quit date/years: <= 15 years ago How often do you have a drink containing alcohol: 4 or more times a week How many standard drinks containing alcohol do you have on a typical day: 10 or more How often do you have six or more drinks on one occasion: Daily or almost daily AUDIT-C Alcohol total score: 12 Non-prescribed substance use: denies use Exam Narrative: Exam Narrative: Const: In severe distress, actively vomiting up blood. Blood also seen on his feet Eyes: PERRL, no conjunctival injection, and symmetrical lids HENT: Atraumatic external nose and ears. Moist mucous membranes. Neck: Symmetric, trachea midline, No thyromegaly. CVS: Tachycardia, No murmurs or gallops. Peripheral pulses 2+ and equal in all extremities RESP: Unlabored respiratory effort. Clear to auscultation bilaterally. GI: Nontender/Nondistended, No rebound or guarding. MSK:Extremities w/o deformity, Normal Active ROM Skin: Warm, Dry. Abrasion to his left lower lateral leg secondary to a fall Neuro: Normal Muscle tone, No focal neurological deficits. Psych: Awake, Alert, & Oriented x3. Medical Decision Making MDM Narrative Medical decision making narrative: Patient is a 63-year-old male presenting and active hemoptysis and melena presenting via EMS due to hypotension. When he arrived he still actively hemorrhaging blood via hemoptysis. As he is clearly losing large amount of blood we did not do a rectal exam as it would not change management consultant. With his history of alcoholism, an EMS states that was several bowel also alcohol in his house that were empty when they arrived, I am mostly concerned about varices at this time. Due that her octreotide and Rocephin was ordered. Also gave 2 g of TXA and 80 mg of Protonix. Started they given him 2 L of fluid for his hypotension. I am under the assumption that he will need blood sore did immediately order 2 units of packed red cells. We we do not have platelets readily available at our facility. [place] tube is not available. Patient continued to vomit up a large amount of blood and Reglan was tried. This seem to improve his nausea. Large workup was ordered including ETOH level, CMP, ammonia, PT INR, PTT, direct bilirubin, CBC, lactate, type and screen. We do his previous blood type on file of A/B positive. After the fluids and the 1 unit of blood patient's blood pressure improved to 106 over 68. Heart rate has gone from 130s to 109. He is stating he is having some shortness of breath so did order a chest x-ray. My immediate review did not show any concerning findings. To throughout this my colleague was helping with transfer process and spoke to the ICU provider at [facility]. Was recommended at that time to do a straight ED to ED transfer. ED provider at [facility] recommended intubation at this time as their facility is very busy and they would not be able to have time to do it when he arrives. Patient needs to be intubated ventrally anyway for his procedures to view what is causing the bleeding. Anesthesia arrived to help facilitate this. The BEDSPRING ASSEMBLER did the intubation and patient was kept at about 45 degree angle to prevent aspiration. Etomidate and succinylcholine were used. I have low concern for hyperkalemia at this time. Ketamine use to keep him sedated due to concern about propofol induced hypotension. Once the patient was intubated location was confirmed with auscultation. He was satting 100% on the ventilator with a good end-tidal. Ketamine infusion started along with fentanyl to keep him sedated. He is leaving via helicopter and we did send another 2 units of blood to be given during transfer if able to and he becomes unstable. Lab work did return with a hemoglobin 8.4. His to hemoglobin is likely lower than this. His previous hemoglobin back in January was 12.5. I do believe he lost a large amount of blood. Potassium was 2.1 and patient was already out the door by the time this returned along with the rest of his CMP. I do believe it is important he gets transferred as soon as possible rather than trying to do anything to correct these labs here in [place]. Lab Data Labs: Lab Results 09/26/24 Range/Units 10:30 INR 1.42 H (0.91-1.10) APTT 31 (23-33) Seconds Lactate 1.9 (0.5-1.9) mmol/L Ammonia 40.9 H (13.1-30.0) umol/L Imaging Data Chest x-ray: Attestation: I have reviewed the pertinent imaging results. Radiologist's impression: Cardiovascular and mediastinum: Normal heart size with mild aortic tortuosity. Lungs and pleural space: Low lung volumes without pleural effusion or pneumothorax. Minimal discoid atelectasis left lung base. Bones and soft tissues: No acute findings. Dictated by Roger Bell MD @ 09/26/2024 11:05:14 AM Critical Care Time Critical Care Time Critical Care Time: Yes Attestation: The patient required my highest level preparedness to intervene emergently and I personally spent this critical care time directly and personally managing the patient. This critical care time included: Obtaining a history; Examining the patient; Pulse oximetry; Ordering and reviewing of studies; Arranging urgent treatment with development of a management plan; Evaluation of patients response to treatment; Frequent reassessment discussions with other providers. This critical care time was performed to assess and manage the high probability of imminent life-threatening deterioration that could result in multiorgan failure. It was exclusive of separate billable procedures and treating other patients and teaching time. Total Critical Care Time in Minutes: 79 Discharge Plan Discharge Clinical Impression: Upper gastrointestinal hemorrhage, Hemorrhagic shock Patient Disposition: [facility] Strange Condition: Critical Prescriptions: No Action Prilosec 10 mg susp,delayed release for recon 20 mg PO BID Follow Up/Referrals: Provider,Not a Local [Primary Care Provider] - Stand Alone Forms: [facility] [employer] [facility] Info Instructions
[2024-09-26 11:36] LABS: Lactate* 1.9 mmol/L (0.5-1.9)
[2024-09-26 11:41] LABS: Albumin* 3.6 g/dL (3.3-5.0)
[2024-09-26 11:42] LABS: Chloride* 76 mmol/L (96-114); Sodium* 143 mmol/L (135-149)
[2024-09-26 11:44] LABS: Anion Gap 57 mEq/L (7-15); Bilirubin Direct* 0.8 mg/dL (0.0-0.5); Bilirubin Total* 1.6 mg/dL (0.1-1.5); Carbon Dioxide* 10 mmol/L (20-32); Creatinine* 3.1 mg/dL (0.5-1.5); Estimated Glomerular Filt Rate 22 ml/min
[2024-09-26 11:45] LABS: Alkaline Phosphatase* 74 U/L (40-150); Blood Urea Nitrogen* 36 mg/dL (7-30); Calcium* 7.7 mg/dL (8.4-10.6); Glucose* 69 mg/dL (60-115); Total Protein* 5.7 g/dL (6.0-8.3)
--- NOTE | 2024-09-26 11:45 | ED.NURSE ---
Report was given to [facility] ER. Pt intubated with anesthesia. Report given to [facility] [place].
[2024-09-26 11:46] LABS: Potassium* 2.1 mmol/L (3.6-5.1)
--- NOTE | 2024-09-26 11:47 | ED.NURSE ---
Patient left via [facility] to [facility]. Only belonging patient had was cell phone. Patient provided database report writer with phone number to his friend Luiza to notify [phone]. Reprint Sorter attempted to call Luiza. No answer and no voicemail available.
[2024-09-26 11:49] LABS: Slide Review Reflex No
[2024-09-26 11:51] LABS: Aspartate Amino Transferase* 85 U/L (12-35)
--- OUTSIDE RECORDS SUMMARY | 2024-09-26 11:51 | XMS_ITS | Clinical Summary ---
Author Organization [facility] Address [place], [place] [address] Care Team Providers Care Radiographer Mammographer Name Role Phone Pcp, No Primary Care Provider Unavailabl e Allergies Active Allergy Reactions Criticality Noted Date Comments Penicillins Rash 06/12/2012 Medications hydrocortisone 1% (HYTONE) 1 % lotionIndicatio ns:Urticaria Apply topically to affected area(s) 2 times daily. 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 Encounters Date Type Department Care Team Description 09/26/2024 11:45 AM RING SPINNER Emergency [facility] Emergency Department [address] [place] [address] from Last 3 Months Immunizations Name Administration Dates Next Due Tdap 11/02/2011 Social History Tobacco Use Types Packs/Day Years Used Date Smoking Tobacco: Every Day Cigarettes Smokeless Tobacco: Never Alcohol Use Standard Drinks/Week Comments Not Asked 0 (1 standard drink = 0.6 oz pur e alcohol) Sex and Gender Information Value Date Recorded Sex Assigned at Not on file Legal Sex Male 8:38 AM RING SPINNER Gender Identity Not on file Sexual Orientation Not on file Obstetrics History Last Filed Vital Signs Vital Sign Reading Time Taken Comments Blood Pressure 129/109 07/26/2023 5:51 AM RING SPINNER Pulse 122 07/26/2023 5:51 AM RING SPINNER Temperature 36.8 C (98.3 F) 10/21/2018 11:06 AM RING SPINNER Respiratory Rate 18 07/26/2023 5:51 AM RING SPINNER Oxygen Saturation 99% 07/26/2023 5:51 AM RING SPINNER Inhaled Oxygen Concentration - - Weight 77.1 kg (170 lb) 10/21/2018 11:06 AM RING SPINNER Height 167.6 cm (5' 6) 10/21/2018 11:06 AM RING SPINNER Body Mass Index 27.44 10/21/2018 11:06 AM RING SPINNER Plan of Treatment Health Maintenance Due Date [...] Tetanus booster 11/02/2021 11/02/2011 COVID-19 vaccine series (2023-25 season) 4 Influenza for age 50-64 05/12/2024 RSV vaccine for adults or pr egnancy (1 - 1-dose 75+ series) 2037 Tdap Completed 11/02/2011 Care Teams Radiographer Mammographer Relationship Specialty Start Date End Date Pcp, No . PCP - General 10/21/18
--- OUTSIDE RECORDS SUMMARY | 2024-09-26 11:52 | XMS_ITS | Referral Summary ---
Author Organization [facility] Address [address] [place] [address] Care Team Providers Care Yarding Supervisor Name Role Phone Cassidy Espinoza APRN, C.N.P. Primary Care Provide r Source Comments Patient records contain information from all sites at [facility]. For routine questions regarding patient records, call [phone] during business hours, M-F 8:00 AM - 5:00 PM Central Time. Record requests for emergency care only can be directed to [phone] at any time.[facility] Encounters Date Type Department Care Team Description 07/16/2024 Orders Only [facility] Cass[facility] Espinoza APRN, C.N.P. Screening Lipid 06/28/2024 4:02 AM CDT - 07/02/2024 1:47 PM CDT Hospital Encounter [facility], [facility], [facility], Fourth Floor [address] [place] [phone] Yaakov Clifton M.D. Trinity Farooq PBin.Tyler., M.S. [...] pu re alcohol) 10-20 shots a day [facility] INXPOities Answer Date Recorded In the past 12 months has [facility] [employer], gas, oil, or water [employer] threatened to shut off services in your [...] your living situation today? 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 LAB BLOOD ADD-ON Final Result [facility] [address] [place] [address], [place] DTL [facility] [address] [place] [address] * Magnesium (07/02/2024 7:29 AM CDT) Only the most recent of6 resultswithin the time period is included. Magnesium, S 1.8 1.7 - 2.3 mg/dL 07/02/2024 8:40 AM CDT DTL Blood (Blood, Venous) 07/02/2024 7:29 AM CDT 07/02/2024 8:19 AM CDT Gilda Guo APRN, C.N.P., D.N.P. LAB BLOOD ADD-ON Final Result [facility] [address] [place] [address], [facility] [address] [place] [address] * (ABNORMAL) Basic Metabolic Panel (07/02/2024 7:29 [...] C.N.P., D.N.P. LAB BLOOD ADD-ON Final Result [facility] [address] [place] [address], [place] [address] * Potassium (06/30/2024 6:42 PM CDT) Only the most recent of3 resultswithin the time period is included. Potassium, S 3.6 3.6 - 5.2 mmol/L 06/30/2024 7:31 PM CDT DTL Blood (Blood, Venous) 06/30/2024 6:42 PM CDT 06/30/2024 7:23 PM CDT Gilda Guo APRN, C.N.P., D.N.P. LAB BLOOD ADD-ON Final Result Performing Organization Address City/[facility] Co de Phone Number [facility] [address] [place] [address], [facility] [address] [place] [address] * (ABNORMAL) Comprehensive Metabolic Panel (06/30/2024 6:45 [...] C.N.P., D.N.P. LAB BLOOD ADD-ON Final Result [facility] [employer] [facility] [address] [place] [address], [place] DTL [facility] [address] [place] [address] * (ABNORMAL) Renal Function Panel (06/29/2024 10:09 [...] Sandhu M.D. LAB BLOOD ADD-ON Final Result [facility] [address] [place] [address], [facility] DTL [facility] [address] [place] [address] * (ABNORMAL) CBC with Differential, Blood (06/29/2024 [...] Sandhu M.D. LAB BLOOD ADD-ON Final Result [facility] [address] [place] [address], [facility] DTL [facility] [address] [place] [address] DHPM [facility] [address] [place] [address] * CT Lumbar Spine by Reconstruction (06/28/2024 [...] and pelvis without IV contrast performed at [facility] February 03, 2024. FINDINGS: Negative for [...] abdomen and pelvis without IV contrast [facility]. FINDINGS: Negative [...] significant canal or foraminalnarrowing. Eladio Sandhu M.D. [facility] CT PROCEDURES Final Result * CT Abdomen [...] of2 resultswithin the time period is included. [facility] FIO2 0.21 0.21=AIR 06/28/2024 2:09 PM CDT [facility] Spont. breaths/min 23 06/28/2024 2:09 PM CDT [facility] 06/28/2024 2:02 PM CDT 06/28/2024 2:09 PM CDT us Eladio Sandhu M.D. LAB BLOOD NON ADD-ON Final Res ult [facility] [address] [place] [address], [facility] [address] [place] [address] * (ABNORMAL) Blood Gas without Coox, Venous (06/28/2024 2:02 PM CDT) Only the most recent of2 resultswithin the time period is included. [facility] pO2, Venous, B 61 Not applicable mm [...] ADD-ON Final Res ult Performing Organization Address City/[facility]/ZIP Co de Phone Number [facility] [address] [place] [address], [facility] [address] [place] [address] * Lactate (06/28/2024 8:40 AM CDT) Pathologist [facility] Lactate, P 1.4 0.5 - 2.2 mmol/L 06/28/2024 9:06 AM CDT [facility] Blood 06/28/2024 8:40 AM CDT 06/28/2024 8:46 AM CDT Yaakov Clifton M.D. LAB BLOOD NON ADD-ON Fi nal Result Performing Organization Address City/[facility]/ZIP Co de Phone Number [facility] [address] [place] [address], [facility] [address] [place] [address] * (ABNORMAL) Bilirubin, Direct (06/28/2024 8:40 AM CDT) Bilirubin, Direct, S 1.0(H) 0.0 - 0.3 mg/dL 06/28/2024 9:27 AM CDT DTL Blood 06/28/2024 8:40 AM CDT 06/28/2024 9:09 AM CDT Dean Ching M.D., M.B.A. LAB BLOOD ADD-ON Fi nal Result [facility] [address] [place] [address], [facility] [address] [place] [address] * US Lower Extremity Veins Left (06/28/2024 [...] and management can be found on the [employer] site. Link [email or web address]/topic/clinical-[email or web address]/[email or web address] Procedure Note Natalio Peterson M.D. - 06/28/2024 [...] thrombosis and management can be found on theAskOffScale site. [email or web address] systemyoexpert.[facility].org/topic/clinical-answers/[email or web address]/[facility] -2049 1725 IMPRESSION: Negative for acute DVT in the visualized deep veins in the left lowerextremity. Dean Ching M.D., M.B.A. IMG US PROCEDURES F inal Result * Breath Alcohol (ETOH), POCT - Nursing (06/28/2024 8:01 AM CDT) [facility] Breath Alcohol, POCT 0.00 QC Pass/Fail Pass Summer School Coordinator DAVE ID [id number] Breath (Mouth) 06/28/2024 8: 01 AM CDT Trinity Farooq P.A.-C., M.S. LAB POCT ORDERABL ES-MANUAL Final Result * (ABNORMAL) Venous Blood Gas and Electrolytes CG8+, POCT (06/28/2024 7:30 AM CDT) Only the most recent of2 resultswithin the time period is included. [facility] Sample Site, POCT Venstick 06/28/2024 7:38 AM [...] POCT ORDERABL ES - DEVICE Final Result [facility] [address] [place] [address], [place] PCLX [facility] [address] [place] [address] [facility] [address] [place] [address] * ECG 12 Lead (06/28/2024 5:36 AM CDT) Only the most recent of2 resultswithin the time period is included. Ventricular Rate ECG/Min 127 BPM MUSE HI Interval 208 ms MUSE QRSD Interval 92 ms MUSE QT Interval 238 ms MUSE QTC Interval 345 ms MUSE P [place] 53 degrees MUSE R [place] 80 degrees MUSE T Wave [place] 158 degrees MUSE 06/28/2024 5:36 AM CDT [...] ORDERABLES - D EVICE Final Result POC [facility] [address] [place] [address], [facility] PCLX [facility] [address] [place] [address] * (ABNORMAL) Hepatic Function Panel (06/28/2024 5:14 [...] BLOOD ADD-ON Final Result Performing Organization Address City/[facility]/ZIP Co de Phone Number [facility] [address] [facility] [address] [place] [address] * (ABNORMAL) Lipase (06/28/2024 5:14 AM CDT) Lipase, S 244(H) 13 - 60 U/L 06/28/2024 6:26 AM CDT DTL Blood (Blood, Venous) 06/28/2024 5:14 AM CDT 06/28/2024 5:46 AM CDT Yaakov Clifton M.D. LAB BLOOD ADD-ON Final Result [facility] [address] [place] [address], [facility] DTL [facility] [address] [place] [address] * CK (Creatine Kinase) (06/28/2024 5:09 AM CDT) Creatine Kinase (CK), S 237 39 - 308 U/L 06/28/2024 6:50 AM CDT DTL Blood (Blood, Venous) 06/28/2024 5:09 AM CDT 06/28/2024 6:32 AM CDT Yaakov Clifton M.D. LAB BLOOD ADD-ON Final Result [facility] [address] [place] [address], [place] [facility] [address] [place] [address] from Last [address] Insurance [facility] Advance Directives For more information, please contact: [phone] * Full Code (Latest Code Status on [...] Due to: Patient not available Care Teams Yarding Supervisor Relationship Specialty Start Date End Date Cassidy Espinoza APRN, C.N.P. [address] [place] [phone] PCP - General Family Medicine 07/01/24
--- OUTSIDE RECORDS SUMMARY | 2024-09-26 11:52 | XMS_ITS ---
Author Organization [facility] Address [address] [place] [address] Care Team Providers Care Supervisor [place] Name Role Phone Unavailable Unavailable Unavailable Surgery Details Not on file Complications Check Surgery Details section. Procedure Estimated Blood Loss Check Surgery Details section. Procedure Findings Check Surgery Details section. Procedure Specimens Taken Check Surgery Details section.
--- OUTSIDE RECORDS SUMMARY | 2024-09-26 11:52 | XMS_ITS | Clinical Summary ---
Author Organization [facility] Address [address] [place] [address] Care Team Providers Care [employer] Name Role Phone Cassidy Espinoza APRN, C.N.P. Primary Care Provide r Source Comments Patient records contain information from all sites at [facility]. For routine questions regarding patient records, call [phone] during business hours, M-F 8:00 AM - 5:00 PM Central Time. Record requests for emergency care only can be directed to [phone] at any time.[facility] Allergies Active Allergy Reactions Criticality Noted Date [...] [facility] PCP [facility] MNT Cassidy Espinoza, PIG MACHINE OPERATOR, C.N.P. Screening Lipid 06/28/2024 4:02 AM CDT - 07/02/2024 1:47 PM CDT Hospital Encounter [facility], [facility], [facility], Fourth Floor [address] [place] [phone] Yaakov Clifton M.D. Utley, Madeline L P.A.-Rosalina, [...] pu re alcohol) 10-20 shots a day [facility] [employer] Answer Date Recorded In the past 12 months has [facility] [employer], gas, oil, or water [employer] threatened to shut off services in your [...] your living situation today? 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 LAB BLOOD ADD-ON Final Result [facility] [address] [place] [address], [facility] [address] [place] [address] * Magnesium (07/02/2024 7:29 AM CDT) Only the most recent of6 resultswithin the time period is included. Magnesium, S 1.8 1.7 - 2.3 mg/dL 07/02/2024 8:40 AM CDT DTL Blood (Blood, Venous) 07/02/2024 7:29 AM CDT 07/02/2024 8:19 AM CDT us Gilda Guo APRN, C.N.P., D.N.P. LAB BLOOD ADD-ON Final Result [facility] [address] [place] [address], [facility] DTL [facility] [place][note 2] [address] [place] [address] * (ABNORMAL) Basic Metabolic Panel (07/02/2024 7:29 [...] C.N.P., D.N.P. LAB BLOOD ADD-ON Final Result [facility] [address] [place] [address], [facility] DTL [facility][note 2] [address] [place] [address] * Potassium (06/30/2024 6:42 PM CDT) Only the most recent of3 resultswithin the time period is included. Potassium, S 3.6 3.6 - 5.2 mmol/L 06/30/2024 7:31 PM CDT DTL Blood (Blood, Venous) 06/30/2024 6:42 PM CDT 06/30/2024 7:23 PM CDT Gilda Guo APRN, C.N.P., D.N.P. LAB BLOOD ADD-ON Final Result [facility] [address] [place] [address], [facility] [address] [place] [address] * (ABNORMAL) Comprehensive Metabolic Panel (06/30/2024 6:45 [...] C.N.P., D.N.P. LAB BLOOD ADD-ON Final Result [address] [address], [facility] [address] [address] * (ABNORMAL) Renal Function Panel (06/29/2024 10:09 [...] Sandhu M.D. LAB BLOOD ADD-ON Final Result [facility] [address] [place] [address], [facility] [address] [place] [address] * (ABNORMAL) CBC with Differential, Blood (06/29/2024 [...] Sandhu M.D. LAB BLOOD ADD-ON Final Result [facility] [address] [place] [address], [facility] DTL [facility] [place][note 2] [address] [place] [address] DHPM [facility] [place][note 2] [address] [place] [address] * CT Lumbar Spine by Reconstruction (06/28/2024 [...] and pelvis without IV contrast performed at [facility] February 03, 2024. FINDINGS: Negative [...] [facility] FINDINGS: Negative [...] significant canal or foraminalnarrowing. Eladio Sandhu M.D. [facility] CT PROCEDURES Final Result * CT Abdomen [...] LAB BLOOD NON ADD-ON Final Res ult [facility] [address] [place] [address], [facility] [address] [place] [address] * (ABNORMAL) Blood Gas without Coox, Venous [...] LAB BLOOD NON ADD-ON Final Res ult [facility] [address] [place] [address], [facility] [address] [place] [address] * Lactate (06/28/2024 8:40 AM CDT) Lactate, P 1.4 0.5 - 2.2 mmol/L 06/28/2024 9:06 AM CDT [facility] Blood 06/28/2024 8:40 AM CDT 06/28/2024 8:46 AM CDT us Yaakov Clifton M.D. LAB BLOOD NON ADD-ON Fi nal Result Performing Organization Address City/[facility]/ZIP Co de Phone Number [facility] [address] [place] [address], [facility] [address] [place] [address] * (ABNORMAL) Bilirubin, Direct (06/28/2024 8:40 AM CDT) Bilirubin, Direct, S 1.0(H) 0.0 - 0.3 mg/dL 06/28/2024 9:27 AM CDT DTL Blood 06/28/2024 8:40 AM CDT 06/28/2024 9:09 AM CDT Dean Ching M.D., M.B.A. LAB BLOOD ADD-ON Fi nal Result [facility] [address] [place] [address], [facility] [address] [place] [address] * US Lower Extremity Veins Left (06/28/2024 [...] and management can be found on the [employer] site. Link https://[employer]/topic/clinical-answers/cnt-13065014/cpm-204 07187 Procedure Note Natalio Peterson M.D. - 06/28/2024 [...] thrombosis and management can be found on the[employer] site. Linkhttps://[employer]/topic/clinical-answers/cnt-58750025/cpm -2040 1725 IMPRESSION: Negative for acute DVT in the visualized deep veins in the left lowerextremity. Dean Ching M.D., M.B.A. IMG US PROCEDURES F inal Result * Breath Alcohol (ETOH), POCT - Nursing (06/28/2024 8:01 AM CDT) [facility] Breath Alcohol, POCT 0.00 QC Pass/Fail Pass Medical Aide DAVE ID [id number] Breath (Mouth) 06/28/2024 8: 01 AM CDT [facility] Farooq P.A.-C., M.S. LAB POCT ORDERABL ES-MANUAL Final Result * (ABNORMAL) Venous Blood Gas and Electrolytes CG8+, POCT (06/28/2024 7:30 AM CDT) Only the most recent of2 resultswithin the time period is included. [facility] Sample Site, POCT Venstick 06/28/2024 [...] ORDERABL ES - DEVICE Final Result [facility] [address] [place] [address], [facility] [address] [place] [address] [facility] POC [address] [place] [address] * ECG 12 Lead (06/28/2024 5:36 AM CDT) Only the most recent of2 resultswithin the time period is included. Ventricular Rate ECG/Min 127 BPM MUSE MT Interval 208 ms MUSE QRSD Interval 92 ms MUSE QT Interval 238 ms MUSE QTC Interval 345 ms MUSE P [place] 53 degrees MUSE R [place] 80 degrees MUSE T Wave [place] 158 degrees MUSE 06/28/2024 5:36 AM CDT [...] ORDERABLES - D EVICE Final Result [facility] [address] [place] [address], [facility] [address] [place] [address] * (ABNORMAL) Hepatic Function Panel (06/28/2024 5:14 [...] BLOOD ADD-ON Final Result Performing Organization Address City/[facility]/ZIP Co de Phone Number [facility] [address] [place] [address], [facility] [address] [place] [address] * (ABNORMAL) Lipase (06/28/2024 5:14 AM CDT) Lipase, S 244(H) 13 - 60 U/L 06/28/2024 6:26 AM CDT DTL Blood (Blood, Venous) 06/28/2024 5:14 AM CDT 06/28/2024 5:46 AM CDT Yaakov Clifton M.D. LAB BLOOD ADD-ON Final Result Performing Organization Address [facility]/ZIP Co de Phone Number [facility] [address] [place] [address], [facility] [address] [place] [address] * CK (Creatine Kinase) (06/28/2024 5:09 AM CDT) Creatine Kinase (CK), S 237 39 - 308 U/L 06/28/2024 6:50 AM CDT DTL Blood (Blood, Venous) 06/28/2024 5:09 AM CDT 06/28/2024 6:32 AM CDT Yaakov Clifton M.D. LAB BLOOD ADD-ON Final Result [facility] [address] [place] [address], [facility] [address] [place] [address] from Last 3 Months Insurance [employer] Advance Directives For more information, please contact: [phone] * Full Code (Latest Code Status on [...] Due to: Patient not available Care Teams [employer] Relationship Specialty Start Date End Date Cassidy Espinoza APRN, C.N.P. [address] [place] [phone] PCP - General Family Medicine 07/01/24
[2024-09-26 11:53] LABS: Alanine Aminotransferase* 48 U/L (4-50); Ethanol* 0.01 % (0.01-0.03)
[2024-09-26] MEDS: METOCLOPRAMIDE HCL 5 MG/ML INJ 10 MG IVP (12:15)
[2024-09-26] MEDS: KETAMINE HCL 500 MG in 0.9 % SODIUM CHLORIDE 500 ML 500 ML 82.46 MG IV (15:44)
--- NOTE | 2024-09-26 15:52 | PC.NURSE ---
Attempted to call patients friendLuiza for a 3rd try to let her know patient was here and transferred to [facility] as patient requested we do so before he was intubated. unable to reach patient or leave a message
== END 2024-09-26 11:57 | disposition short-term general hospital (02) ==
PROVIDERS: Family Medicine; Emergency Provider Student in an Organized Health Care Education/Training Program
DX: K92.2 Gastrointestinal hemorrhage, unspecified (principal); R57.1 Hypovolemic shock
CPT/HCPCS: 31500; 36415; 36430; 71045; 80053; 82077; 82140; 82248; 83605; 85025; 85610; 85730; 86850; 86900; 86901; 86922; 94761; 96365; 96366; 96375; 99285; 99291; J0696; J2354; J2470; J2765; J3490; J7030; P9016